=== PATIENT | female | born 1990 ===

== ENCOUNTER 2017-01-08 19:30 | Emergency (ER) | payer OTHER ==
[2017-01-08 19:30] VITALS: BMI 33.6
[2017-01-08 19:47] VITALS: BP 125/89; PULSE 84; RESP 16; TEMP 98.2; O2SAT 100
[2017-01-08] MEDS ORDERED: Sodium Chloride 0.9% 1,000 ML IV STA (20:03)
[2017-01-08 20:43] LABS: BASO % 0.5 % (0.0-2.0); HEMATOCRIT 37.6 % (34.0-47.0); MEAN CORPUSCULAR HEMOGLOBIN 29.6 pg (27.0-31.0); MEAN CORPUSCULAR HGB CONC 33.4 g/dL (33.0-37.0); MEAN PLATELET VOLUME 9.7 fl (7.2-11.7); MONO # 1.1 K/uL (0.0-0.8); MONO % 13.7 % (0.0-10.0); NEUT % 60.8 % (50.0-75.0); NRBC % 0.1 % (0.0-0.0); RED CELL DISTRIBUTION WIDTH 13.7 % (11.5-14.5); WHITE BLOOD COUNT 8.2 K/uL (4.8-10.8)
[2017-01-08 20:47] LABS: ALKALINE PHOSPHATASE 84 U/L (38-126); ALT/SGPT 12 U/L (9-52); AST/SGOT 31 U/L (14-36); BILIRUBIN,TOTAL 0.6 mg/dl (0.2-1.3); BLOOD UREA NITROGEN 18 mg/dl (7-17); CALCIUM 9.1 mg/dL (8.4-10.2); CARBON DIOXIDE 24 mmol/L (22-30); CHLORIDE 103 mmol/L (98-107); GFR AFRICAN-AMERICAN > 60; GLUCOSE,RANDOM 83 mg/dL (65-105); SODIUM 141 mmol/l (132-148); TOTAL PROTEIN 8.2 G/DL (6.3-8.2)
[2017-01-08 20:48] LABS: POTASSIUM 4.8 MMOL/L (3.6-5.0)
--- NOTE | 2017-01-08 20:50 | ED PDOC ---
Lower Extremity Pain/Injury Time Seen by Provider: 01/08/17 20:15 Chief Complaint (Nursing): Lower Extremity Problem/Injury Chief Complaint (Provider): left foot pain History Per: Patient History/Exam Limitations: no limitations Onset/Duration Of Symptoms: Hrs (this morning ) Current Symptoms Are (Timing): Still Present Additional Complaint(s): Genesis Araujo is a 26 year old female, with no previous medical history, who presents to the ED with complaints of atraumatic left foot pain and swelling which started this morning. Pt reports no numbness or tingling to the foot. Pt states when foot is palpated in area of pain, pain radiates up the foot. Pt denies any numbness, tingling, chest pain, shortness of breath of calf pain. Pt reports falling in July 2016 into a pothole where she required surgery on that foot. Pt reports undergoing surgery on August 18 2016. Pt states she contacted Dr. Amaro the surgeon who preformed her procedure who stated pt be evaluated in the ED. PMD: none provided Past Medical History Reviewed: Historical Data, Nursing Documentation, Vital Signs Vital Signs: Last Vital Signs Temp 98.2 F 01/08/17 19:45 Pulse 84 01/08/17 19:45 Resp 16 01/08/17 19:45 BP 125/89 01/08/17 19:45 Pulse Ox 100 01/08/17 19:45 - Medical History PMH: Asthma, Bronchitis, Seizures Denies: Chronic Kidney Disease - Family History Family History: States: Unknown Family Hx - Home Medications Home Medications: Ambulatory Orders Medication Instructions Recorded Carbamazepine [Carbatrol] 200 mg PO AC 02/04/15 Carbamazepine [Carbatrol] 400 mg PO HS 02/04/15 Folic Acid 1 mg PO BID 02/04/15 oxyCODONE/Acetaminophen [Percocet 1 ea PO Q6H PRN #15 tab 08/12/16 5/325 mg Tab] Cephalexin [cephalexin] 500 mg PO TID 08/21/16 Pregabalin [Lyrica] 100 mg PO TID 08/21/16 Ondansetron [Zofran] 4 mg PO Q8H PRN #10 tab 01/08/17 oxyCODONE/Acetaminophen [Percocet 1 ea PO Q6 PRN #10 tab 01/08/17 5/325 mg Tab] - Allergies Allergies/Adverse Reactions: Allergies Allergy/AdvReac Type Severity Reaction Status Date / Time doxycycline Allergy ANAPHYLAXIS Verified 02/09/16 17:35 Review of Systems ROS Statement: Except As Marked, All Systems Reviewed And Found Negative Cardiovascular: Negative for: Chest Pain Respiratory: Negative for: Shortness of Breath Musculoskeletal: Positive for: Foot Pain (left foot ) Neurological: Negative for: Numbness, Other (tingling ) Physical Exam - Reviewed Nursing Documentation Reviewed: Yes Vital Signs Reviewed: Yes - Physical Exam Appears: Positive for: Well, Non-toxic, In Acute Distress (moderate painful ) Head Exam: Positive for: ATRAUMATIC, NORMAL INSPECTION, NORMOCEPHALIC Skin: Positive for: Normal Color, Warm, Dry Cardiovascular/Chest: Positive for: Regular Rate, Rhythm Respiratory: Positive for: Normal Breath Sounds. Negative for: Decreased Breath Sounds, Accessory Muscle Use, Wheezing, Respiratory Distress Extremity: Positive for: Normal ROM (not assest ), Tenderness (dorsum of the left foot ), Capillary Refill (< 2 seconds ). Negative for: Pedal Edema, Calf Tenderness, Deformity, Swelling (no erythema ), Other (ankle tenderness. homans sign ) Neurologic/Psych: Positive for: Alert, Oriented Comments: incision noted to the medial aspect of the foot. well healing. - Laboratory Results Result Diagrams: 01/08/17 20:14 01/08/17 20:14 - ECG O2 Sat by Pulse Oximetry: 100 (RA) Pulse Ox Interpretation: Normal - Progress ED Course And Treament: xry of foot: screw noted seen by podiatry resident. Patient to f/u with Dr. Leblanc on to arrange removal of 'tight-rope.' Medical Decision Making Medical Decision Making: Initial Impression: Initial Plan: * labs * morphine * IV NS 1,000 ml at 500 ml/hr * pepcid * tylenol * zofran * x-ray left foot * reevaluation 19:56 Called to bedside by pt for vomiting. Pt states pain acutely worsened which caused her to vomit. Scribe Attestation: Documented by Liss Alves, acting as a scribe for Pamela Turner PA-C. Provider Scribe Attestation: All medical record entries made by the Scribe were at my direction and personally dictated by me. I have reviewed the chart and agree that the record accurately reflects my personal performance of the history, physical exam, medical decision making, and the department course for this patient. I have also personally directed, reviewed, and agree with the discharge instructions and disposition. Disposition - Clinical Impression Clinical Impression: Fracture dislocation of tarsometatarsal joint, Pain of foot - Patient ED Disposition Is Patient to be Admitted: No - Disposition Disposition: Routine/Home Disposition Time: 22:19 Condition: FAIR Prescriptions: oxyCODONE/Acetaminophen [Percocet 5/325 mg Tab] 1 ea PO Q6 PRN #10 tab PRN Reason: Pain, Severe (8-10) Ondansetron [Zofran] 4 mg PO Q8H PRN #10 tab PRN Reason: Nausea/Vomiting Instructions: Foot Fracture in Adults (ED)
[2017-01-08 20:54] LABS: MEAN CELL VOLUME 88.6 fl (81.0-99.0)
[2017-01-08] MEDS ORDERED: HYDROmorphone 0.5 mg/0.5 ml ISec IVP STA (21:35)
[2017-01-08] MEDS ORDERED: HYDROmorphone 0.5 mg/0.5 ml ISec ONE (21:38)
--- NOTE | 2017-01-08 22:15 | CP.PCM.CON ---
History of Present Illness - History of Present Illness History of Present Illness: 26 year old female with PMHx of seizure disorder, presenting to the ED with a chief complaint of pain and swelling to her left foot which began this morning. Patient has left foot Lisfranc ORIF done by Dr. Leblanc in July with tightrope fixation. She denies any recent trauma to the area, however states that she woke up this morning in severe pain with swelling of the foot. She denies n/v/f/c/sob at this time. Patient is ambulating with CAM walker at this time. Past Patient History - Infectious Disease Hx of Infectious Diseases: None - Past Medical History & Family History Past Medical History?: Yes - Past Social History Smoking Status: Never Smoked - CARDIAC Hx Cardiac Disorders: No - PULMONARY Hx Asthma: Yes Hx Bronchitis: Yes - NEUROLOGICAL Hx Seizures: Yes - HEENT Hx HEENT Problems: No - RENAL Hx Chronic Kidney Disease: No - ENDOCRINE/METABOLIC Hx Endocrine Disorders: No - HEMATOLOGICAL/ONCOLOGICAL Hx Blood Disorders: No - INTEGUMENTARY Hx Dermatological Problems: No - MUSCULOSKELETAL/RHEUMATOLOGICAL Hx Musculoskeletal Disorders: No Hx Back Pain: Yes - GASTROINTESTINAL Hx Gastrointestinal Disorders: No - GENITOURINARY/GYNECOLOGICAL Hx Genitourinary Disorders: No - PSYCHIATRIC Hx Psychophysiologic Disorder: No Hx Emotional Abuse: No Hx Physical Abuse: No Hx Substance Use: No - SURGICAL HISTORY Hx Surgeries: Yes Other/Comment: Hx tummy tuck, skin tag removal 2010 - ANESTHESIA Hx Anesthesia: Yes Hx Anesthesia Reactions: No Hx Malignant Hyperthermia: No Meds Allergies/Adverse Reactions: Allergies Allergy/AdvReac Type Severity Reaction Status Date / Time doxycycline Allergy ANAPHYLAXIS Verified 02/09/16 17:35 Physical Exam - Constitutional Appears: Well, Non-toxic, No Acute Distress - Neurological Exam Neurological exam: Oriented x3 - Psychiatric Exam Psychiatric exam: Normal Affect, Normal Mood - Additional Findings Additional findings: DERMATOLOGIC: Skin is intact, normal skin color, no open lesions or rashes. There is small area of discoloration surrounding the surgical site at the medial aspect of the first metatarsal base with hyperpigmentation. VASCULAR: DP/PT pulses 2/4, ANNEALING FURNACE TENDER<3 seconds, skin temperature is normal. There is localized edema at the left foot with small pocket of edema at previous surgical site NEUROLOGIC: Gross sensation intact, motor function intact ORTHOPEDIC: Pain on palpation to the medial aspect of the left first metatarsal base medially and the dorsal aspect of the midfoot, both areas correlating to the surrounding surgical sites. There is prominent hardware palpable at the medial and dorsal aspect of the foot. Results - Vital Signs Recent Vital Signs: Last Vital Signs Temp 98.2 F 01/08/17 19:45 Pulse 84 01/08/17 19:45 Resp 16 01/08/17 19:45 BP 125/89 01/08/17 19:45 Pulse Ox 100 01/08/17 21:08 - Labs Result Diagrams: 01/08/17 20:14 01/08/17 20:14 Labs: Laboratory Results - last 24 hr 01/08/17 20:14 WBC 8.2 D RBC 4.24 Hgb 12.6 D Hct 37.6 MCV 88.6 D MCH 29.6 MCHC 33.4 RDW 13.7 Plt Count 260 MPV 9.7 Neut % (Auto) 60.8 Lymph % (Auto) 25.0 [place] % (Auto) 13.7 H Eos % (Auto) 0.0 Baso % (Auto) 0.5 Neut # 5.0 Lymph # 2.0 [place] # 1.1 H Eos # 0.0 Baso # 0.0 Sodium 141 Potassium 4.8 Chloride 103 Carbon Dioxide 24 Anion Gap 19 BUN 18 H Creatinine 0.5 L Est GFR ( Amer) > 60 Est GFR (Non-Af Amer) > 60 Random Glucose 83 Calcium 9.1 Total Bilirubin 0.6 AST 31 ALT 12 Alkaline Phosphatase 84 Total Protein 8.2 Albumin 4.1 Globulin 4.1 H Albumin/Globulin Ratio 1.0 Assessment & Plan - Assessment and Plan (Free Text) Assessment: 26 year old female with painful hardware to the left foot s/p lisfranc ORIF in July 2016. Plan: Patient seen and evaluated, d/w attending Dr. Leblanc. Patients x-rays reviewed. Pt will require removal of left foot tightrope by Dr. Leblanc. Patient will see Dr. Leblanc in his office on and he will book her for surgery for removal at that time. Patient to wear CAM walker for ambulation and use her rolling walker for assistance. Patient to ice and elevate the LLE at home. ED will dispense pain medication to go home with.
--- NOTE | 2017-01-09 14:00 | RAD ---
PROCEDURE: Left Foot Radiographs. HISTORY: tender COMPARISON: 11/09/2016. FINDINGS: BONES: Stable position orthopedic hardware 1st and 2nd cuneiform bones and 2nd metatarsal. Mild osteopenia. JOINTS: No significant interval change compared to the prior examination(s). SOFT TISSUES: Unremarkable OTHER FINDINGS: None. IMPRESSION: Stable examination.
== END 2017-01-08 22:48 | disposition home or self-care (01) ==
LOC: H.ER 19:30
DX: M79.672 Pain in left foot (principal)

== ENCOUNTER 2017-02-08 15:29 | Emergency (ER) | payer OTHER ==
[2017-02-08 15:29] VITALS: BMI 34.0
[2017-02-08 15:36] VITALS: BP 133/77; PULSE 88; RESP 19; TEMP 98.8; O2SAT 99
[2017-02-08] MEDS ORDERED: Oxycodone/Acetaminophen 5/325 mg Tab PO STA (15:50)
--- NOTE | 2017-02-08 16:03 | ED PDOC ---
Lower Extremity Pain/Injury Time Seen by Provider: 02/08/17 15:45 Chief Complaint (Nursing): Lower Extremity Problem/Injury Chief Complaint (Provider): Right Foot Injury History Per: Patient History/Exam Limitations: no limitations Current Symptoms Are (Timing): Constant Additional Complaint(s): 15:45 Genesis Araujo is a 26 year old female that presents to the ED with a chief complaint of right foot pain. Patient reports that she sustained a right foot injury in July 2016, and has surgical intervention with Dr. Leblanc. She also states that that she was seen yesterday for foot pain and was given an injection for pain control, but feels that the pain has become progressively worse to the point at [facility] she is nauseous and cannot bear any weight on her foot. Of Note: Patient walks with a cane. Past Medical History Reviewed: Historical Data, Nursing Documentation, Vital Signs Vital Signs: Last Vital Signs Temp 98.8 F 02/08/17 15:34 Pulse 88 02/08/17 15:34 Resp 19 02/08/17 15:34 BP 133/77 02/08/17 15:34 Pulse Ox 99 02/08/17 15:34 - Medical History PMH: Asthma (WITH BRONCHITIS), Bronchitis, Fractures (LEFT FOOT), Seizures Denies: Chronic Kidney Disease - Family History Family History: States: Unknown Family Hx - Home Medications Home Medications: Ambulatory Orders Medication Instructions Recorded Carbamazepine [Carbatrol] 200 mg PO ACB 02/04/15 Carbamazepine [Carbatrol] 400 mg PO HS 02/04/15 Pregabalin [Lyrica] 100 mg PO TID 08/21/16 Folic Acid 1 tab PO BID 01/11/17 lamoTRIgine [Lamictal] 1 tab PO BID 01/11/17 Tramadol HCl [Ultram] 50 mg PO Q6 #15 tab 02/08/17 - Allergies Allergies/Adverse Reactions: Allergies Allergy/AdvReac Type Severity Reaction Status Date / Time doxycycline Allergy ANAPHYLAXIS Verified 01/11/17 10:44 Review of Systems Constitutional: Negative for: Fever, Chills Gastrointestinal: Positive for: Nausea, Vomiting Musculoskeletal: Positive for: Foot Pain (right foot pain) Physical Exam - Reviewed Nursing Documentation Reviewed: Yes Vital Signs Reviewed: Yes - Physical Exam Appears: Positive for: Non-toxic, In Acute Distress (pt is in moderate painful distress) Head Exam: Positive for: ATRAUMATIC, NORMOCEPHALIC Skin: Positive for: Normal Color, Warm Eye Exam: Positive for: Normal appearance, EOMI Extremity: Positive for: Tenderness (ttp of right foot), Swelling (significant swelling to dorsum of right foot). Negative for: Other (no bruising or hematoma of right foot) Neurologic/Psych: Positive for: Alert, commodity merchant II-XII, Oriented - ECG O2 Sat by Pulse Oximetry: 99 (RA) Pulse Ox Interpretation: Normal Medical Decision Making Medical Decision Makin:57 Initial Impression: Right Foot Injury Initial Plan: * CMP * CBC * ESR * Blood Culture * Urinalysis X-Ray of patient's right ankle done today, reviewed. Screws noted, but no evidence of acute fracture. Patient began vomiting in ER, was given oxygen as well as Zofran with Morphine (4 mg each IV). Will consult podiatry, and ordered basic lapse to rule out infection. 16:59 Podiatry came to evaluate patient. 17:19 Pt will be placed in a hardcast. and will be advised to f/u with podiatry in 1 week given ultram for pain control advise strongly that narcotic use can lead to addiction. made aware this, however due to severity of pain given a few for 10/ 10pain. Scribe Attestation: Documented by Julia Golden, acting as a scribe for Radha Mario PA-C. Provider Scribe Attestation: All medical record entries made by the Scribe were at my direction and personally dictated by me. I have reviewed the chart and agree that the record accurately reflects my personal performance of the history, physical exam, medical decision making, and the department course for this patient. I have also personally directed, reviewed, and agree with the discharge instructions and disposition. Disposition - Clinical Impression Clinical Impression: Lisfranc fracture - Patient ED Disposition Is Patient to be Admitted: No Counseled Patient/Family Regarding: Studies Performed, Diagnosis, Need For Followup, Rx Given - Disposition Referrals: [facility] [Outside] Disposition: Routine/Home Disposition Time: 18:01 Condition: STABLE Prescriptions: Tramadol HCl [Ultram] 50 mg PO Q6 #15 tab Instructions: Foot Fracture in Adults (ED)
[2017-02-08 17:29] LABS: RBC URINE 4 /hpf (0-3); URINE BACTERIA OCC (<OCC); URINE BILIRUBIN NEGATIVE (NEGATIVE); URINE BLOOD SMALL (NEGATIVE); URINE COLOR YELLOW (YELLOW); URINE GLUCOSE (UA) NEG (Normal); URINE KETONE NEGATIVE (NEGATIVE); URINE LEUKOCYTE ESTERASE NEG Leu/uL (Negative); URINE PROTEIN 30 mg/dL (NEGATIVE); URINE UROBILINOGEN 0.2-1.0 mg/dL (0.2-1.0); WBC URINE 1 /hpf (0-5)
--- NOTE | 2017-02-08 19:05 | CP.PCM.CON ---
History of Present Illness - History of Present Illness History of Present Illness: 26 year old female seen at bedside in [facility] ED concerning left foot pain. Pt was sent to [facility] for radiographs by red leader Dr. Leblanc, who is treating her for this issue, after being seen in his office. However intensity of pain to her foot caused her to head to the emergency room after. Pt has a history of a traumatic lisfranc injury and recently had a surgery in December to remove surgical hardware from the site. Pt reports pain is "8/10", though is able to partially ambulate with use of a malcolm though she states she has not slept for the past 2 night due to the intensity of the pain. Pt has had pain not controlled with Tylenol and reports most relief came from use of Percocet. Pt denies and recent acute trauma to the foot that could have exacerbated injury. Pt denies recent f/c/cp/sob/n/v. Past Patient History - Infectious Disease Hx of Infectious Diseases: None - Past Medical History & Family History Past Medical History?: Yes - Past Social History Smoking Status: Never Smoked - CARDIAC Hx Cardiac Disorders: No - PULMONARY Hx Asthma: Yes (WITH BRONCHITIS) Hx Bronchitis: Yes - NEUROLOGICAL Hx Seizures: Yes - HEENT Hx HEENT Problems: No - RENAL Hx Chronic Kidney Disease: No - ENDOCRINE/METABOLIC Hx Endocrine Disorders: No - HEMATOLOGICAL/ONCOLOGICAL Hx Blood Disorders: No - INTEGUMENTARY Hx Dermatological Problems: No - MUSCULOSKELETAL/RHEUMATOLOGICAL Hx Fractures: Yes (LEFT FOOT) - GASTROINTESTINAL Hx Gastrointestinal Disorders: No - GENITOURINARY/GYNECOLOGICAL Hx Genitourinary Disorders: No - PSYCHIATRIC Hx Psychophysiologic Disorder: No Hx Substance Use: No - SURGICAL HISTORY Hx Surgeries: Yes Hx Open Reduction Internal Fixation: Yes (LEFT FOOT) Other/Comment: Hx tummy tuck, skin tag removal 2010 - ANESTHESIA Hx Anesthesia: Yes Hx Anesthesia Reactions: No Hx Malignant Hyperthermia: No Meds Home Medications: Home Medication List Medication Instructions Recorded Confirmed Type Tramadol HCl [Ultram] 50 mg PO Q6 #15 tab 02/08/17 Rx Allergies/Adverse Reactions: Allergies Allergy/AdvReac Type Severity Reaction Status Date / Time doxycycline Allergy ANAPHYLAXIS Verified 01/11/17 10:44 Physical Exam - Constitutional Appears: Well, Non-toxic, No Acute Distress - Extremities Exam Additional comments: Left foot focused. DERMATOLOGIC: Skin is intact, normal skin color, no open lesions or rashes. Well approximated medial surgical cicatrix absent overlying stratum corneum layer of skin to a 4 cm martin-incision diameter. There is small area of discoloration surrounding the surgical site at the medial aspect of the first metatarsal base with hyperpigmentation. VASCULAR: DP/PT pulses 2/4, AUDIO VISUAL PROJECT MANAGER<3 seconds, skin temperature is normal. There is localized edema at the left foot along the previous surgical site and extending laterally across dorsum of the foot. NEUROLOGIC: Gross sensation intact, motor function intact ORTHOPEDIC: Pain on palpation to the medial aspect of the left first metatarsal base medially and the dorsal aspect of the midfoot, both areas correlating to the surrounding surgical sites. Mild laxity along medial tarsal bones structures. - Neurological Exam Neurological exam: Alert, Oriented x3 - Psychiatric Exam Psychiatric exam: Normal Affect, Normal Mood Results - Vital Signs Recent Vital Signs: Last Vital Signs Temp 98.8 F 02/08/17 15:34 Pulse 88 02/08/17 15:34 Resp 19 02/08/17 15:34 BP 133/77 02/08/17 15:34 Pulse Ox 99 02/08/17 18:03 - Labs Labs: Laboratory Results - last 24 hr 02/08/17 16:10 Urine Color Yellow Urine Clarity Slighty-cloudy Urine pH 6.0 Ur Specific [place] 1.030 Urine Protein 30 Urine Glucose (UA) Neg Urine Ketones Negative Urine Blood Small Urine Nitrate Negative Urine Bilirubin Negative Urine Urobilinogen 0.2-1.0 Ur Leukocyte Esterase Neg Urine RBC (Auto) 4 H Urine Microscopic WBC 1 Ur Squamous Epith Cells 7 H Urine Bacteria Occ H Assessment & Plan - Assessment and Plan (Free Text) Assessment: 26 year old with recurrent Lisfranc injury, secondary to non-acute prior trauma. Plan: Patient seen and evaluated. Charts, labs, and vitals reviewed. Discussed finding with attending Dr. Leblanc who endorses the following plan. -X-rays reviewed-noted Lisfranc diastasis absent significant displacement or translation. - Discussed finding with patient explained there is need for further surgical intervention do to radiological and clinical finding. Surgical planning to occur in Dr. Mejía's office, though benefits risk and complications were discussed at this time. -All patient's questions and concerns were addressed at this time. -Applied below knee bi-valved fiberglass cast to patient's left foot. Pt to remain non-weightbearing with use of crutches. Patient to ice and elevate the LLE at home. ED will dispense pain medication to go home with. Pt to follow-up with attending Dr. Leblanc in office. - Date & Time Date: 02/08/17 Time: 18:26
== END 2017-02-08 18:42 | disposition home or self-care (01) ==
LOC: H.ER 15:29
DX: M79.671 Pain in right foot (principal); R11.2 Nausea with vomiting, unspecified; Z47.89 Encounter for other orthopedic aftercare

== ENCOUNTER 2017-04-28 18:39 | Emergency (ER) | payer OTHER ==
[2017-04-28 18:39] VITALS: BMI 34.0
[2017-04-28 18:43] VITALS: BP 118/77; PULSE 91; RESP 16; TEMP 98.2; O2SAT 99
[2017-04-28] MEDS ORDERED: Oxycodone/Acetaminophen 5/325 mg Tab PO STA ×2 (18:51→20:26)
[2017-04-28] MEDS ORDERED: Oxycodone/Acetaminophen 5/325 mg Tab ONE (19:09)
--- NOTE | 2017-04-28 19:50 | CP.PCM.CON ---
History of Present Illness - History of Present Illness History of Present Illness: 27 y/o female with PMH of seizures presents to the ED with pain and swelling in the left foot after a fall approximately 1 hour ago. Patient states she slipped while getting into the shower and her foot collapsed downwards with her toes pointing down. Patient states the pain began immediately and resembled that of when she injured her foot in July. Patient states she sees Dr. Leblanc regularly and has a history of foot surgery with him. Patient last saw Dr. Leblanc in his office approximately 9 days ago for a corticosteroid injection into the L foot for mild to moderate residual post-surgical pain. Patient states that her toes feel numb and have pins and needles. Patient denies any F/C /N/V/SOB. PSH: left foot correction of tarsometatarsal joint injury with dislocation (2015) All: Doxycycline Review of Systems - Review of Systems All systems: reviewed and no additional remarkable complaints except (per HPI) Past Patient History - Infectious Disease Hx of Infectious Diseases: None - Past Medical History & Family History Past Medical History?: Yes - Past Social History Smoking Status: Never Smoked - CARDIAC Hx Cardiac Disorders: No - PULMONARY Hx Asthma: Yes (WITH BRONCHITIS) Hx Bronchitis: Yes - NEUROLOGICAL Hx Seizures: Yes - HEENT Hx HEENT Problems: No - RENAL Hx Chronic Kidney Disease: No - ENDOCRINE/METABOLIC Hx Endocrine Disorders: No - HEMATOLOGICAL/ONCOLOGICAL Hx Blood Disorders: No - INTEGUMENTARY Hx Dermatological Problems: No - MUSCULOSKELETAL/RHEUMATOLOGICAL Hx Fractures: Yes (LEFT FOOT) - GASTROINTESTINAL Hx Gastrointestinal Disorders: No - GENITOURINARY/GYNECOLOGICAL Hx Genitourinary Disorders: No - PSYCHIATRIC Hx Psychophysiologic Disorder: No Hx Substance Use: No - SURGICAL HISTORY Hx Surgeries: Yes Hx Open Reduction Internal Fixation: Yes (LEFT FOOT) Other/Comment: Hx tummy tuck, skin tag removal 2010 - ANESTHESIA Hx Anesthesia: Yes Hx Anesthesia Reactions: No Hx Malignant Hyperthermia: No Meds Allergies/Adverse Reactions: Allergies Allergy/AdvReac Type Severity Reaction Status Date / Time doxycycline Allergy ANAPHYLAXIS Verified 01/11/17 10:44 Physical Exam - Constitutional Appears: Well, Non-toxic, No Acute Distress - Extremities Exam Additional comments: Left lower extremity focused examination: Vascular: DP/PT pulses palpable 2/4. Temperature gradient warm to warm. CFT < 3 sec to all digits. Mild pedal edema noted to dorsum of foot. Derm: No erythema, no ecchymosis, no open lesions, no breaks in skin or soft tissue, no clinical signs of infection Neuro: Protective sensation grossly intact Ortho: Tenderness upon light palpation of dorsal foot. Hx of Lisfranc fracture with ligamentous injury. - Neurological Exam Neurological exam: Alert, Oriented x3 - Psychiatric Exam Psychiatric exam: Normal Affect, Normal Mood Results - Vital Signs Recent Vital Signs: Last Vital Signs Temp 98.2 F 04/28/17 18:41 Pulse 91 H 04/28/17 18:41 Resp 16 04/28/17 18:41 BP 118/77 04/28/17 18:41 Pulse Ox 99 04/28/17 18:41 Assessment & Plan - Assessment and Plan (Free Text) Assessment: 27 y/o female with PMH of left foot tarsometatarsal joint dislocation injury with pain and swelling in left foot secondary to fall Plan: Pt seen and evaluated in ED Discussed plan in detail with attending Dr. Leblanc Pt given Percocet by ED for pain management Reviewed X-rays of L foot and ankle- moderate diastasis noted at Lisfranc joint. No acute fracture or dislocation, no significant radiographic changes noted since previous films on 02/08/17 Patient instructed to be non-weight bearing in CAM walker Pt to follow up with Dr. Leblanc as outpatient on ED to decide if patient discharged with pain medication Thank you for this consult
--- NOTE | 2017-04-28 19:59 | ED PDOC ---
Lower Extremity Pain/Injury Time Seen by Provider: 04/28/17 18:44 Chief Complaint (Nursing): Lower Extremity Problem/Injury Chief Complaint (Provider): Lower Extremity Injury History Per: Patient History/Exam Limitations: no limitations Onset/Duration Of Symptoms: Mins (just prior to arrival) Current Symptoms Are (Timing): Still Present Severity: Moderate Additional Complaint(s): 27 year old female with a pertinent medical history of left foot fractures presents to the ED with complaints of left ankle and left foot pain that started just prior to arrival when she slipped and fell in her bathtub. She reports that in August 2016, she had a fracture of her left foot, and needed surgery (preformed by ) for it. 2x months later, she had to get the screws from that surgery removed. She denies having any numbness or tingling, or any other injuries (including a head injury) from the fall. PMD: Gilse Leblanc MD Past Medical History Reviewed: Historical Data, Nursing Documentation, Vital Signs Vital Signs: Last Vital Signs Temp 98.2 F 04/28/17 18:41 Pulse 91 H 04/28/17 18:41 Resp 16 04/28/17 18:41 BP 118/77 04/28/17 18:41 Pulse Ox 99 04/28/17 18:41 - Medical History PMH: Asthma (WITH BRONCHITIS), Bronchitis, Fractures (LEFT FOOT), Seizures Denies: Chronic Kidney Disease - Surgical History Other surgeries: left foot surgery august 2016, october 2016 - Family History Family History: States: Unknown Family Hx - Social History Current smoker - smoking cessation education provided: No Alcohol: None Drugs: Denies - Home Medications Home Medications: Ambulatory Orders Medication Instructions Recorded Carbamazepine [Carbatrol] 200 mg PO ACB 02/04/15 Carbamazepine [Carbatrol] 400 mg PO HS 02/04/15 Pregabalin [Lyrica] 100 mg PO TID 08/21/16 Folic Acid 1 tab PO BID 01/11/17 lamoTRIgine [Lamictal] 1 tab PO BID 01/11/17 Tramadol HCl [Ultram] 50 mg PO Q6 #15 tab 02/08/17 Naproxen [Naprosyn] 500 mg PO BID PRN #30 tab 04/28/17 - Allergies Allergies/Adverse Reactions: Allergies Allergy/AdvReac Type Severity Reaction Status Date / Time doxycycline Allergy ANAPHYLAXIS Verified 01/11/17 10:44 Review of Systems Musculoskeletal: Positive for: Foot Pain (left foot, left ankle pain) Neurological: Negative for: Numbness (no tingling), Headache (no head injury) Physical Exam - Reviewed Nursing Documentation Reviewed: Yes Vital Signs Reviewed: Yes - Physical Exam Appears: Positive for: Well, Non-toxic, No Acute Distress Head Exam: Positive for: ATRAUMATIC, NORMOCEPHALIC Pulses-Dorsalis Pedis (L): 2+ Pulses-Dorsalis Pedis (R): 2+ Extremity: Positive for: Tenderness (mild tenderness to the lateral malleolus of left ankle. no deformity, (+) swelling. dorsum of left foot: mild swelling, no deformity.). Negative for: Calf Tenderness (bilaterally), Deformity Neurologic/Psych: Positive for: Alert, Oriented (x3) - ECG O2 Sat by Pulse Oximetry: 99 (RA) Pulse Ox Interpretation: Normal - Radiology X-Ray: Interpreted by Me (L ankle and foot x-rays) X-Ray Interpretation: Other ([address]; no fx; compared to last foot x- ray on 01/14 which show no acute changes today) - Progress ED Course And Treament: Pt. evaluated by Miriam, podiatry resident, in ED. Miriam viewed x-rays with Dr. Leblanc (who knows pt. well) and compared previous x- rays which show no acute changes today. Dr. Leblanc will patient on . Pt. requesting more pain meds. Toradol 15mg IM, percocet 1 tab PO given. [place] [facility] [place] that pt. was last prescribed Endocet #15 on 04/18/[address] Rai. Foot was wrapped by Miriam and given f/u instructions. Medical Decision Making Medical Decision Makin:44 Initial impression: 27 year old female with left ankle and left foot pain status post fall. Initial plan: * percocet 5/325mg tab: 1 tab PO * XRay ankle left 3 views * XRay foot left 3 views * reevaluation Scribe Attestation: Documented by Melissa Zee, acting as a scribe for Kristian Menjivar Provider Scribe Attestation: All medical record entries made by the Scribe were at my direction and personally dictated by me. I have reviewed the chart and agree that the record accurately reflects my personal performance of the history, physical exam, medical decision making, and the department course for this patient. I have also personally directed, reviewed, and agree with the discharge instructions and disposition. Disposition - Clinical Impression Clinical Impression: Foot sprain - Patient ED Disposition Is Patient to be Admitted: No - Disposition Referrals: Sean Leblanc DPM [Doctor Podiatric [facility]] - Disposition: Routine/Home Disposition Time: 20:43 Condition: STABLE Additional Instructions: FOLLOW UP WITH DR. LEBLANC ON SATURDAY SCHEDULED WITHOUT FAIL. Prescriptions: Naproxen [Naprosyn] 500 mg PO BID PRN #30 tab PRN Reason: Pain Instructions: Crutch Instructions (ED), Foot Sprain (ED), RICE Therapy (ED) Forms: [employer] (Bulgarian) Print Language: AZERBAIJANI
--- NOTE | 2017-04-29 14:49 | RAD ---
PROCEDURE: Left Ankle Radiographs. HISTORY: trauma COMPARISON: Prior left ankle radiographs 05/01/2014. FINDINGS: BONES: Normal. No fracture. JOINTS: Normal. No osteoarthritis. Ankle mortise maintained. Talar dome intact SOFT TISSUES: Normal. OTHER FINDINGS: Incidental note is made of interval podiatric screws at the tarsus as well as involving the apparent proximal segment of the 2nd metatarsal bone and possibly also the 3rd metatarsal bone. IMPRESSION: No acute fracture dislocation. Or significant interval change in the ankle. Incidental postop change are identified at the midfoot however.
--- NOTE | 2017-04-29 14:51 | RAD ---
PROCEDURE: Left Foot Radiographs. HISTORY: trauma COMPARISON: Left foot radiographs 02/08/2017. FINDINGS: BONES: No acute fracture or dislocation is identified. No suspicious lytic or blastic change is evident. JOINTS: Orthopedic or podiatric screws identified at the base of the 2nd metatarsal bone as well as in the region of the middle and lateral cuneiform bones once again. SOFT TISSUES: Normal. OTHER FINDINGS: None. IMPRESSION: No acute fracture dislocation. Postop changes in the midfoot as described above.
== END 2017-04-28 20:55 | disposition home or self-care (01) ==
LOC: H.ER 18:39
DX: S93.602A Unspecified sprain of left foot, initial encounter (principal); X50.9XXA Other and unspecified overexertion or strenuous movements or postures, initial encounter; Y92.002 Bathroom of unspecified non-institutional (private) residence as the place of occurrence of the external cause

== ENCOUNTER 2017-06-25 12:13 | Day surgery (SDC) | payer OTHER ==
[2017-06-20 11:23] VITALS: BMI 37.8
[2017-06-25] MEDS ORDERED: ceFAZolin 2 GM in Sodium Chloride 0.9% 100 ML IVPB ONE (14:23)
[2017-06-25] MEDS ORDERED: Bupivacaine 0.5% Inj(30mL) IJ ONE (14:23)
[2017-06-25] MEDS ORDERED: Lidocaine 1% Inj (20ml) IJ ONE ×2 (14:23→15:52)
--- NOTE | 2017-06-25 14:28 | CP.SDSHP ---
Same Day Surgery H & P - History Proposed Procedure: Painful hardware removal from 2nd and 3rd metatarsal of the left foot Pre-Op Diagnosis: painful hardware in left foot s/p surgical procedure - Allergies Allergies: Allergies doxycycline Allergy (Verified 01/11/17 10:44) ANAPHYLAXIS - Physical Exam Vital Signs: Vital Signs 06/25/17 12:30 Temperature 97.6 F Pulse Rate 81 Respiratory 18 Rate Blood Pressure 123/79 O2 Sat by Pulse 98 Oximetry Mental Status: Alert & Oriented x3 Neuro: WNL Heart: WNL Lungs: WNL GI: WNL - {Optional Preform as Required} Ortho: Other - Impression Impression: Pt was seen and examined in SDS. Pt NPO status was confirmed. All Pre-op testing and clearance was in the chart. Pt has exhausted all conservative treatment at this time and is opting for surgical intervention. Pt was explained procedure and post-operative course. All pt's questions were answered to satisfaction. No guarantees were made. Pt understands all risks, benefits and complications of procedure. Pt will follow-up with Dr. Leblanc Short Stay Discharge - Short Stay Discharge Admitting Diagnosis/Reason for Visit: Z47.2 Disposition: HOME/ ROUTINE Referrals: Jay Dempsey MD [Primary Care Provider] - Additional Instructions (Diet, Activity): Patient in good/stable condition for discharge home. Pt to resume medications per medical reconciliation. Resume regular diet. Please keep dressing clean, dry, & intact to surgical site, use plastic bag over bandage for showering, wear post op shoe at all times when ambulating, call clinic if you see signs of infection (redness, swelling, malodor), please make an appointment to see Dr. Leblanc in office/clinic within 1 week for post-op check. Progress Note/Discharge Note with Instructions: - Patient evaluated bedside in recovery s/p surgical procedure. - After surgical procedure patient in NAD - (+) Void, (+) Appetite - Capillary refill time <3s and NVSI intact. - Patient denies complaints at this time - Post operative instructions and plan of care explained to patient at length. - Pt. acknowledges understanding. - Patient stable for DC per podiatric surgery
[2017-06-25] MEDS ORDERED: Sodium Chloride 0.9% 1,000 ML IV SCH (14:30)
--- NOTE | 2017-06-25 14:31 | CP.PCM.PN ---
Subjective - Date & Time of Evaluation Date of Evaluation: 06/25/17 Time of Evaluation: 14:28 - Subjective Subjective: 27 y/o female seen at [facility] in [facility] for removal of painful hardware from left foot 2nd and 3rd metatarsal. Patient states that she has been having pain in her left foot for a while which radiates to her ankle. Patient states that she would like to get her hardware removed from the left foot. Patient states that she has been N.P.O since 9 pm last night. Patient denies of any adverse reaction to anesthesia. Patient denies of any recent F/N/V/C/SOB/CP today. Patient denies of any other pedal complains at of now. PMHx: Asthma, Bronchitis, Fractures (LEFT FOOT), Seizures PSHx: Left foot surgery Allergies: Doxycycline Objective - Vital Signs/Intake and Output Vital Signs (last 24 hours): Temp Pulse Resp BP Pulse Ox 97.6 F 81 18 123/79 98 06/25/17 12:30 06/25/17 12:30 06/25/17 12:30 06/25/17 12:30 06/25/17 12:30 - Medications Medications: Current Medications Bupivacaine HCl (Marcaine 0.5%) 50 ml IJ ONCE ONE Stop: 06/25/17 14:24 Cefazolin Sodium 2 gm/ Sodium (Chloride) 100 mls @ 100 mls/hr IVPB ONCE ONE Stop: 06/25/17 15:22 Sodium Chloride (Sodium Chloride 0.9%) 1,000 mls @ 120 mls/hr IV .Q8H20M DEE Stop: 06/26/17 14:24 Lidocaine HCl (Lidocaine 1% (20ml)) 20 ml IJ ONCE ONE Stop: 06/25/17 14:24 - Constitutional Appears: Well, Non-toxic, No Acute Distress - Extremities Exam Additional comments: Left lower extremity focused examination: Vascular: DP/PT pulses palpable 2/4. Temperature gradient warm to cool from proximal to distal. Cap refill time: < 3 sec to all digits. no pitting or non- pitting edema noted Derm: No erythema, no ecchymosis, no open lesions, no breaks in skin or soft tissue, previous surgical scar noted on the medial aspect of the midfoot, no clinical signs of infection Neuro: Protective sensation grossly intact Ortho: Tenderness upon light palpation of dorsal foot. pain present on dorsum of the foot during active DF, PF, Inversion and eversion, Hx of Lisfranc fracture with ligamentous injury. - Neurological Exam Neurological Exam: Alert, Awake, Oriented x3 - Psychiatric Exam Psychiatric exam: Normal Affect, Normal Mood Assessment and Plan - Assessment and Plan (Free Text) Assessment: 27 y/o female seen at bedside in [facility] for removal of painful hardware from left foot Plan: Pt was seen and examined in [facility] Pt NPO status was confirmed All Pre-op testing and clearance was in the chart Pt has exhausted all conservative treatment at this time and is opting for surgical intervention Pt was explained procedure and post-operative course All pt's questions were answered to satisfaction No guarantees were made Pt understands all risks, benefits and complications of procedure Pt will follow-up with Dr. Leblanc
[2017-06-25] MEDS ORDERED: Lidocaine 1% Inj (20ml) ONE (14:38)
[2017-06-25] MEDS ORDERED: Bupivacaine 0.5% Inj(30mL) ONE (14:38)
[2017-06-25] MEDS ORDERED: Lactated Ringer's 1,000 ML IV ONE (15:36)
[2017-06-25] MEDS ORDERED: Propofol 10 mg/ml Inj (20 ML) ONE (15:39)
[2017-06-25] MEDS ORDERED: Midazolam 2 MG/2 ML VIAL ONE (15:39)
[2017-06-25] MEDS ORDERED: Bupivacaine 0.5% 50 ML IJ ONE ×2 (15:52→17:09)
[2017-06-25] MEDS ORDERED: Dexamethasone 4 mg/1 ml ONE (17:07)
[2017-06-25] MEDS ORDERED: HYDROmorphone 0.5 mg/0.5 ml ISec IVP PRN (17:31)
--- NOTE | 2017-06-25 17:39 | PCM.SURG1 ---
Surgeon's Initial Post Op Note - Surgeon's Notes Surgeon: Dr. Sean Leblanc DPM Marker Machine Attendant: Dr. Thompson (PGY-1), Dr. Almaraz (PGY-1) Type of Anesthesia: General LMA Anesthesia Administered By: Dr. Mayen Pre-Operative Diagnosis: Painful hardware of left foot Operative Findings: See dictation. M: 3-0 vicryl, 4-vicryl, 3-0 nylon. I: 10 cc of 0.5% marcain plain, 1 cc of dexamethasone Post-Operative Diagnosis: same Operation Performed: exostectomy of 2nd metatarsal base, intermediate cuneiform , and lateral cuneiform exostosis Specimen/Specimens Removed: none Estimated Blood Loss: EBL {In ML}: 5 Blood Products Given: N/A Drains Used: No Drains Post-Op Condition: Good Date of Surgery/Procedure: 06/25/17 Time of Surgery/Procedure: 17:41
[2017-06-25] MEDS ORDERED: Oxycodone/Acetaminophen 5/325 mg Tab PO PRN ×2 (17:43)
[2017-06-25] MEDS ORDERED: HYDROmorphone 0.5 mg/0.5 ml ISec ONE (17:43)
[2017-06-25] MEDS ORDERED: Lactated Ringer's 1,000 ML IV SCH (17:45)
[2017-06-25 18:12] VITALS: TEMP 97.8
[2017-06-25] MEDS ORDERED: Lactated Ringer's 500 ML IV ONE (18:25)
[2017-06-25 18:40] VITALS: RESP 20
--- NOTE | 2017-06-25 19:10 | RAD ---
PROCEDURE: Left Foot Radiographs. HISTORY: Postop COMPARISON: 04/28/2017 FINDINGS: BONES: Stable position of orthopedic hardware. No acute osseous abnormalities. JOINTS: Normal. SOFT TISSUES: Soft tissue swelling over both plantar and ventral aspects of the foot. Air identified within the soft tissues likely postoperative in nature given history provided above. OTHER FINDINGS: None. IMPRESSION: Soft tissue swelling without acute articular or osseous abnormality. This represents a new finding compared to the prior study. Stable position of orthopedic hardware.
[2017-06-25 19:25] VITALS: BP 127/74; PULSE 91; O2SAT 100
--- NOTE | 2017-07-01 08:25 | OP ---
PROCEDURE DATE: 06/25/17 PREOPERATIVE DIAGNOSIS: Painful hardware, left foot. POSTOPERATIVE DIAGNOSIS: Painful exostosis of left foot. NAME OF PROCEDURE: Left exostectomy of second metatarsal base, intermediate cuneiform and lateral cuneiform. SURGEON: Sean Leblanc DPM ASSISTANTS: Tommie Thompson DPM, Dr. Almaraz. TYPE OF ANESTHESIA: General LMA. ANESTHESIA ADMINISTERED BY: Dr. Mayen. INDICATIONS: The patient is a 27-year-old female with above diagnosis. The patient has exhausted all conservative treatments at this time and now requires surgical intervention. The patient signed the consent after careful explanation of risks, benefits, complications and alternatives for surgical procedure. No guarantees were given nor implied. N.p.o. status was confirmed prior to taking the patient to the OR. PREPARATION: The patient was brought into the operating room and placed on the operating room table in a supine position. Time-out was performed for identification of the correct patient and procedure. After anesthesia, the patient received 20 mL of 0.5% Marcaine and 1% lidocaine plain in an ankle block fashion. Once local anesthesia was achieved, the left ankle and foot was then placed and draped in a normal sterile manner. A mini C-arm was then draped in a normal sterile manner as well. The patient's left foot was then exsanguinated with elevation and the pneumatic ankle tourniquet was inflated to 250 mmHg and the procedure began. DESCRIPTION OF PROCEDURE: Fluoroscopy imaging was utilized to ensure the location of the hardware. The hardware was visualized at the level of the second metatarsal base and intermediate cuneiform. Using a Piasa, the location of the hardware was marked using a marking pen. Attention was then directed to the dorsal aspect of the intermediate cuneiform. With the use of a #15-blade, an about 5-cm in length incision was created along the lateral aspect of the intermediate cuneiform joint to the level of the second metatarsal base. The incision was then carried down through the subcutaneous tissue, being careful to retract and ligate all neurovascular structures as deemed necessary. The periosteal structures were then carefully dissected free of their osseous attachment and reflected medial and laterally thus exposing the intermediate cuneiform, lateral cuneiform and second metatarsal base down to the operative site. At this time, no hardware was noted protruding on the dorsum of the mid foot. Fluoroscopy imaging was used again to locate the hardware. Still no prominence of the hardware can be visualized. At this time, noted to the intermediate cuneiform, lateral cuneiform and second metatarsal base were multiple large exostoses, consistent with the site of the patient's pain. Next, utilizing a rongeur, the exostoses were removed from the intermediate cuneiform, lateral cuneiform, and second metatarsal base and passed off the operating field. Next, utilizing a mallet, additional bone exostosis was further removed from the intermediate cuneiform, lateral cuneiform and second metatarsal base. A Power Rasp was then used to smooth down all bony prominences. Then, the wound was irrigated with copious amounts of normal saline sterile solution. Bone wax was applied to the intermediate and lateral cuneiform and second metatarsal base. Then, with the use of a 3-0 Vicryl suture material, the periosteum and the subcutaneous was reapproximated. Then, with the use of 4-0 Vicryl suture material, the subcuticular edges were reapproximated. Then, using 3-0 nylon, skin edges were reapproximated and coapted in a simple interrupted stitch pattern. Then, 10 mL of 0.5% Marcaine and 1 mL of dexamethasone 4 mg were injected surrounding the surgical site. The wounds were then dressed with Xeroform, gauze, kerlix and coban. POSTOPERATIVE CONDITION: The patient tolerated the anesthesia and procedure well and was escorted to the recovery room with vital signs stable and neurovascular status intact to the left foot. The patient will follow up with Dr. Leblanc in 1 week. Tommie Thompson DPM Sean Leblanc DPM [facility]
== END 2017-06-25 19:35 | disposition home or self-care (01) ==
LOC: H.OPSURG 12:13
PROVIDERS: ATTEND Podiatrist
DX: M89.9 Disorder of bone, unspecified (principal); Z47.2 Encounter for removal of internal fixation device; E66.9 Obesity, unspecified; G40.909 Epilepsy, unspecified, not intractable, without status epilepticus
CPT/HCPCS: 28043; 73620; J0690; J1100; J1170; J2250; J2405; J2704; J2765; J3010; J7030; J7120

== ENCOUNTER 2017-12-11 17:59 | Observation (INO) | payer OTHER ==
[2017-12-11 17:59] VITALS: BMI 37.8
--- NOTE | 2017-12-11 18:27 | ED PDOC ---
HPI: SOB/CHF/COPD Time Seen by Provider: 12/11/17 18:15 Chief Complaint (Nursing): Shortness Of Breath Chief Complaint (Provider): Shortness of breath History Per: Patient History/Exam Limitations: no limitations Onset/Duration Of Symptoms: Days (x1) Current Symptoms Are (Timing): Still Present Associated Symptoms: Chest Pain, Dizziness, Other (back pain and generalized weakness.). denies: Fever, Chills, Productive Cough Recently: Treated By A Physician Additional Complaint(s): Genesis Araujo is a 27 year old female, with a past medical history of asthma and seizures, who presents to the emergency department complaining of shortness of breath, back and chest pain onset since yesterday. Patient also reports dizziness and generalized weakness. Patient was seen by PMD on Saturday was given singulair but with no relief of symptoms. She denies any fever, chills or other medical complaints. PMD: Shaik Martin Past Medical History Reviewed: Historical Data, Nursing Documentation, Vital Signs Vital Signs: Last Vital Signs Temp 98.0 F 12/11/17 18:11 Pulse 95 H 12/11/17 18:11 Resp 16 12/11/17 18:11 BP 106/65 12/11/17 18:11 Pulse Ox 98 12/11/17 18:11 - Medical History PMH: Asthma (WITH BRONCHITIS), Bronchitis, Fractures (LEFT FOOT), Seizures Denies: Chronic Kidney Disease - Surgical History Surgical History: No Surg Hx - Family History Family History: States: Unknown Family Hx - Social History Current smoker - smoking cessation education provided: No - Home Medications Home Medications: Ambulatory Orders Medication Instructions Recorded Carbamazepine [Carbatrol] 200 mg PO ACB 02/04/15 Carbamazepine [Carbatrol] 400 mg PO HS 02/04/15 Pregabalin [Lyrica] 100 mg PO TID 08/21/16 Folic Acid 1 tab PO BID 01/11/17 lamoTRIgine [Lamictal] 1 tab PO BID 01/11/17 Acetaminophen/Oxycodone Hydr 10 - 325 mg PO Q4 PRN 06/25/17 [Percocet 10/325 mg Tab] Cephalexin [Keflex] 500 mg PO TID 06/25/17 - Allergies Allergies/Adverse Reactions: Allergies Allergy/AdvReac Type Severity Reaction Status Date / Time doxycycline Allergy ANAPHYLAXIS Verified 12/11/17 18:11 Review of Systems ROS Statement: Except As Marked, All Systems Reviewed And Found Negative Constitutional: Positive for: Weakness (generalized). Negative for: Fever, Chills Respiratory: Positive for: Cough, Shortness of Breath Musculoskeletal: Positive for: Back Pain Neurological: Positive for: Dizziness Physical Exam - Reviewed Nursing Documentation Reviewed: Yes Vital Signs Reviewed: Yes - Physical Exam Appears: Positive for: Non-toxic, No Acute Distress Head Exam: Positive for: ATRAUMATIC, NORMAL INSPECTION, NORMOCEPHALIC Skin: Positive for: Normal Color, Warm, Dry Eye Exam: Positive for: Normal appearance, EOMI, PERRL Neck: Positive for: Painless ROM, Supple Cardiovascular/Chest: Positive for: Regular Rate, Rhythm. Negative for: Murmur Respiratory: Positive for: Normal Breath Sounds (clear auscultation b/l). Negative for: Respiratory Distress Gastrointestinal/Abdominal: Positive for: Normal Exam, Soft. Negative for: Tenderness Back: Positive for: Normal Inspection. Negative for: L CVA Tenderness, R CVA Tenderness, Vertebral Tenderness Extremity: Positive for: Normal ROM. Negative for: Tenderness, Deformity, Swelling Neurologic/Psych: Positive for: Alert, Oriented - ECG O2 Sat by Pulse Oximetry: 98 (RA) Pulse Ox Interpretation: Normal Medical Decision Making Medical Decision Making: Initial Impression: Asthma exacerbation, chest pain and back pain. Initial Plan: --EKG --CMP --Troponin I --Urine --CBC w/ differential --D Dimer --PTT --PT --Chest two views (PA/LAT) [RAD] --Duoneb 3 ml INH --SOLU-medrol 125mg IVP --Morphine 2mg IV --Sodium Chloride 1,000 ml IV 1,000 mls/hr --Peak flow pre/post Tx --Reevaluation Scribe Attestation: Documented by Fitz Hernandez, acting as a scribe for Liss Jean-Baptiste MD Provider Scribe Attestation: All medical record entries made by the Scribe were at my direction and personally dictated by me. I have reviewed the chart and agree that the record accurately reflects my personal performance of the history, physical exam, medical decision making, and the department course for this patient. I have also personally directed, reviewed, and agree with the discharge instructions and disposition. Disposition - Disposition
[2017-12-11] MEDS ORDERED: Sodium Chloride 0.9% 1,000 ML IV STA (18:30)
[2017-12-11] MEDS ORDERED: Albuterol-Ipratrop 3 mg / 0.5 (3 ml) UD INH STA ×4 (18:30→21:55)
[2017-12-11] MEDS ORDERED: Albuterol-Ipratrop 3 mg / 0.5 (3 ml) UD ONE ×2 (18:35→23:14)
--- NOTE | 2017-12-11 19:06 | ED PDOC ---
- Laboratory Results Result Diagrams: 12/11/17 18:48 12/11/17 18:48 - ECG O2 Sat by Pulse Oximetry: 98 (RA) Medical Decision Making Medical Decision Makin:00 --Patient was endorsed to me by Dr. Jean-Baptiste, pending X-Ray and labs 10PM Patient continues to complain of "chest tightness" although states pain is gone. States she feels as though she may have another acute flareup of asthma at home. Patient requesting another duoneb. Will give duoneb and magnesium. Case discussed with Dr. Antonio who agrees to OBS admission. Patient speaking full sentences at this time, not hypoxic, stable for floor. Disposition - Clinical Impression Clinical Impression: Asthma - POA Present On Arrival: None - Disposition Disposition: Hospitalized as Observation Patient Disposition Time: 22:00 Condition: FAIR
[2017-12-11 19:25] LABS: BASO % 0.3 % (0.0-2.0); HEMOGLOBIN 12.4 g/dL (12.0-16.0); LYMPH # 0.8 K/uL (1.0-4.3); LYMPH % 7.6 % (20.0-40.0); MEAN CELL VOLUME 88.6 fl (81.0-99.0); MEAN CORPUSCULAR HEMOGLOBIN 29.5 pg (27.0-31.0); MEAN CORPUSCULAR HGB CONC 33.3 g/dL (33.0-37.0); MEAN PLATELET VOLUME 9.5 fl (7.2-11.7); MONO # 0.8 K/uL (0.0-0.8); MONO % 6.8 % (0.0-10.0); NEUT # 9.5 K/uL (1.8-7.0); NEUT % 85.3 % (50.0-75.0); PLATELET COUNT 286 K/uL (130-400); RBC 4.21 Mil/uL (3.80-5.20); WHITE BLOOD COUNT 11.2 K/uL (4.8-10.8)
[2017-12-11 19:34] LABS: ALB/GLOB RATIO 1.1 (1.0-2.1); ALBUMIN 4.1 g/dL (3.5-5.0); ALT/SGPT 32 U/L (9-52); AST/SGOT 26 U/L (14-36); BLOOD UREA NITROGEN 17 mg/dl (7-17); CALCIUM 9.1 mg/dL (8.4-10.2); GFR AFRICAN-AMERICAN > 60; GFR NON-AFRICAN AMERICAN > 60
[2017-12-11 19:50] LABS: INR 1.1 (0.9-1.2); PARTIAL THROMBOPLASTIN TIME 31.2 Seconds (25.6-37.1); PROTHROMBIN TIME 12.1 Seconds (9.8-13.1)
--- NOTE | 2017-12-11 21:12 | RAD ---
EXAM: XR Chest, 2 Views CLINICAL HISTORY: 27 years old, female; Signs and symptoms; Other: Cp TECHNIQUE: Frontal and lateral views of the chest. COMPARISON: CR - CHEST TWO VIEWS (PA/LAT) 2016-01-23 20:41 FINDINGS: Lungs: Mild underinflation. No consolidation. Pleural space: No pleural effusion. No pneumothorax. Heart: No cardiomegaly. Mediastinum: Unremarkable. Bones/joints: No acute fracture. IMPRESSION: 1. No definite acute cardiopulmonary disease.
[2017-12-11 21:41] LABS: ANISOCYTOSIS SLIGHT; BANDS 1 % (0-2); HYPOCHROMIC SLIGHT; LYMPHOCYTE 9 % (20-50); MONOCYTE 6 % (0-10); NEUTROPHIL 84 % (42-75); OVALOCYTES SLIGHT; PLATELET ESTIMATE NORMAL (NORMAL); TOTAL CELLS COUNTED 100
[2017-12-11 21:42] LABS: TEARDROP CELLS SLIGHT
[2017-12-11] MEDS ORDERED: Magnesium Sulfate 2 gm/50 ml 2 GM/50 ML BAG IVPB ONE (21:55)
[2017-12-11] MEDS ORDERED: Magnesium Sulfate 2 gm/50 ml 2 GM/50 ML BAG ONE (23:33)
[2017-12-12] MEDS: Albuterol-Ipratrop 3 mg / 0.5 (3 ml) UD INH SCH ×2 (02:00→07:49)
[2017-12-12] MEDS ORDERED: methylPREDNISolone 80 MG in Sodium Chloride 0.9% 50 ML IVPB SCH (04:00)
[2017-12-12 07:44] VITALS: BP 114/73; PULSE 83; RESP 20; TEMP 97.9; O2SAT 97
[2017-12-12] MEDS ORDERED: Pneumococcal 23-Valent Vaccine IM ONE (09:00)
--- NOTE | 2017-12-12 09:46 | CP.PCM.DIS ---
Provider - Provider Date of Admission: 12/11/17 21:54 Attending physician: Daniel Antonio MD Time Spent in preparation of Discharge (in minutes): 30 Diagnosis - Discharge Diagnosis (1) Morbid obesity Status: Acute (2) Asthma Status: Acute (3) Seizure disorder Status: Acute (4) Upper respiratory infection Status: Acute Hospital Course - Lab Results Lab Results: Most Recent Lab Values WBC 11.2 K/uL (4.8-10.8) H 12/11/17 18:48 RBC 4.21 Mil/uL (3.80-5.20) 12/11/17 18:48 Hgb 12.4 g/dL (12.0-16.0) 12/11/17 18:48 Hct 37.3 % (34.0-47.0) 12/11/17 18:48 MCV 88.6 fl (81.0-99.0) 12/11/17 18:48 MCH 29.5 pg (27.0-31.0) 12/11/17 18:48 MCHC 33.3 g/dL (33.0-37.0) 12/11/17 18:48 RDW 14.0 % (11.5-14.5) 12/11/17 18:48 Plt Count 286 K/uL (130-400) 12/11/17 18:48 MPV 9.5 fl (7.2-11.7) 12/11/17 18:48 Neut % (Auto) 85.3 % (50.0-75.0) H 12/11/17 18:48 Lymph % (Auto) 7.6 % (20.0-40.0) L 12/11/17 18:48 Irwin % (Auto) 6.8 % (0.0-10.0) 12/11/17 18:48 Eos % (Auto) 0.0 % (0.0-4.0) 12/11/17 18:48 Baso % (Auto) 0.3 % (0.0-2.0) 12/11/17 18:48 Neut # (Auto) 9.5 K/uL (1.8-7.0) H 12/11/17 18:48 Lymph # (Auto) 0.8 K/uL (1.0-4.3) L 12/11/17 18:48 Irwin # (Auto) 0.8 K/uL (0.0-0.8) 12/11/17 18:48 Eos # (Auto) 0.0 K/uL (0.0-0.7) 12/11/17 18:48 Baso # (Auto) 0.0 K/uL (0.0-0.2) 12/11/17 18:48 Neutrophils % (Manual) 84 % (42-75) H 12/11/17 18:48 Band Neutrophils % 1 % (0-2) 12/11/17 18:48 Lymphocytes % (Manual) 9 % (20-50) L 12/11/17 18:48 Monocytes % (Manual) 6 % (0-10) 12/11/17 18:48 Platelet Estimate Normal (NORMAL) 12/11/17 18:48 Hypochromasia (manual) Slight 12/11/17 18:48 Anisocytosis (manual) Slight 12/11/17 18:48 Tear Drop Cells Slight 12/11/17 18:48 Ovalocytes Slight 12/11/17 18:48 PT 12.1 Seconds (9.8-13.1) 12/11/17 18:43 INR 1.1 (0.9-1.2) 12/11/17 18:43 APTT 31.2 Seconds (25.6-37.1) 12/11/17 18:43 D-Dimer, Quantitative 82 ng/mlDDU (0-230) 12/11/17 18:43 Sodium 141 mmol/l (132-148) 12/11/17 18:48 Potassium 3.8 MMOL/L (3.6-5.0) 12/11/17 18:48 Chloride 99 mmol/L (98-107) 12/11/17 18:48 Carbon Dioxide 27 mmol/L (22-30) 12/11/17 18:48 Anion Gap 19 (10-20) 12/11/17 18:48 BUN 17 mg/dl (7-17) 12/11/17 18:48 Creatinine 0.6 mg/dl (0.7-1.2) L 18 18:48 Est GFR ( Amer) > 60 12/11/17 18:48 Est GFR (Non-Af Amer) > 60 12/11/17 18:48 Random Glucose 94 mg/dL (65-105) 12/11/17 18:48 Calcium 9.1 mg/dL (8.4-10.2) 12/11/17 18:48 Total Bilirubin 0.3 mg/dl (0.2-1.3) 12/11/17 18:48 AST 26 U/L (14-36) 12/11/17 18:48 ALT 32 U/L (9-52) 12/11/17 18:48 Alkaline Phosphatase 84 U/L (38-126) 12/11/17 18:48 Troponin I < 0.0120 ng/mL (0.00-0.120) 12/11/17 18:48 Total Protein 7.9 G/DL (6.3-8.2) 12/11/17 18:48 Albumin 4.1 g/dL (3.5-5.0) 12/11/17 18:48 Globulin 3.8 gm/dL (2.2-3.9) 12/11/17 18:48 Albumin/Globulin Ratio 1.1 (1.0-2.1) 12/11/17 18:48 - Hospital Course Hospital Course: sob resolved Discharge Exam - Head Exam Head Exam: ATRAUMATIC, NORMAL INSPECTION, NORMOCEPHALIC - Eye Exam Eye Exam: EOMI, Normal appearance, PERRL Pupil Exam: NORMAL ACCOMODATION, PERRL - GI/Abdominal Exam GI & Abdominal Exam: Normal Bowel Sounds - Rectal Exam Rectal Exam: NORMAL INSPECTION - Neurological Exam Neurological exam: Alert, CN II-XII Intact, Normal Gait, Oriented x3, Reflexes Normal - Psychiatric Exam Psychiatric exam: Normal Affect, Normal Mood - Skin Skin Exam: Dry, Intact, Normal Color, Warm Discharge Plan - Discharge Medications Prescriptions: Albuterol 0.083% [Albuterol 0.083% Inhal Mounika (2.5 mg/3 ml) UD] 2.5 mg IH QID # 100 neb Methylprednisolone [Medrol Dose Pack (21 tabs)] 4 mg PO ASDIR #21 mg Azithromycin [Zithromax] 250 mg PO DAILY #6 tab - Follow Up Plan Condition: FAIR Disposition: HOME/ ROUTINE Patient education suggested?: Yes Instructions: Azithromycin (Systemic), Asthma, Adult (DC), Methylprednisolone Additional Instructions: follow up with your primary MD 7-10 days. Referrals: Shaik Martin MD [Family Provider] -
--- NOTE | 2017-12-12 12:11 | HP ---
ADMITTING HISTORY AND PHYSICAL HISTORY OF PRESENT ILLNESS: Ms. Araujo is a 27-year-old female who was admitted via the Emergency Room because of progressively worsening shortness of breath, exercise intolerance, cough, and chest tightness for the past several days prior to presentation. The symptoms worsened on the day of admission and she came to the Emergency Room where she was given multiple bronchodilator therapies, which she did not help including magnesium sulfate. She was therefore admitted for acute asthma. PAST MEDICAL HISTORY: She has a past medical history of asthma and seizure disorder. FAMILY HISTORY: Remarkable for mother who has asthma. SOCIAL HISTORY: She does not smoke or drink and she lives at home with . REVIEW OF SYSTEMS: Essentially remarkable for recurrent asthma episode. PHYSICAL EXAMINATION: GENERAL: The patient is alert, oriented, and appears much more comfortable at this point. Denies shortness of breath or exercise intolerance. VITAL SIGNS: Blood pressure of 114/73 with a pulse of 83, and respiratory rate of 20. She is afebrile. O2 saturation of 97% on room air. SKIN: Shows fair turgor. HEENT: Pupils are equal and reactive to light and accommodation. Mouth shows fair hygiene. JVP flat. LUNGS: Clear. HEART: Regular. No murmurs or gallop. BREASTS: Normal. ABDOMEN: Soft and nontender. No organomegaly. EXTREMITIES: Shows no edema or cyanosis. The patient is morbidly obese. NEUROLOGIC: Central nervous system exam is grossly intact. LABORATORY DATA: The rest of the labs and chest x-ray reviewed. IMPRESSION: Acute asthma, which has improved with medication, and history of seizure disorder. PLAN: The plan is to discharge the patient today. She will follow up with Dr. Crowley as an outpatient. She will be on different doses of steroids as well as bronchodilator and antibiotics. The is at bedside who is going to take the patient once discharged. Daniel Antonio MD
--- NOTE | 2017-12-12 14:45 | CARD ---
APPROVED REPORT EKG Measurement Heart [id number] <Conclusion> Normal sinus rhythm Normal ECG
== END 2017-12-12 10:03 | disposition home or self-care (01) ==
LOC: H.ER 17:59 → H.ERHOLD 21:54 → H.MEDSURG1 12-12
PROVIDERS: ADMIT Internal Medicine Pulmonary Disease; ATTEND Internal Medicine Pulmonary Disease
DX: J45.909 Unspecified asthma, uncomplicated (principal); E66.01 Morbid (severe) obesity due to excess calories; Z68.36 Body mass index [BMI] 36.0-36.9, adult; G40.909 Epilepsy, unspecified, not intractable, without status epilepticus; J06.9 Acute upper respiratory infection, unspecified; Z23 Encounter for immunization
CPT/HCPCS: 71046; 80053; 81025; 84484; 85025; 85378; 85610; 85730; 90471; 90732; 93005; 94640; 96365; 96367; 96375; 96376; 99283; G0378; J1885; J2270; J2405; J2930; J7040

== ENCOUNTER 2018-04-11 00:50 | Emergency (ER) | payer OTHER ==
[2018-04-11 00:51] VITALS: BMI 37.8
[2018-04-11 02:01] VITALS: RESP 16; O2SAT 99
--- NOTE | 2018-04-11 02:35 | ED PDOC ---
Lower Extremity Pain/Injury Time Seen by Provider: 04/11/18 01:41 Chief Complaint (Nursing): Lower Extremity Problem/Injury Chief Complaint (Provider): left foot pain History Per: Patient History/Exam Limitations: no limitations Onset/Duration Of Symptoms: Hrs Current Symptoms Are (Timing): Still Present Additional Complaint(s): 28 y/o female presents for evaluation of left foot pain from injury sustained prior to arrival. Patient states she has history of trauma to left foot from injury years ago and has screws and "string" in foot from bone/ligament repair. Patient states since surgery she experiences intermittent numbness to left leg if sitting for too long and while sitting in bed tonight leg went numb and when she stood up her left foot got caught, causing her to put all her weight on the top of the left foot which bent downwards. Patient reports worsening pain to foot since then. Denies numbness/weakness left lower extremity, limitation of movement. Past Medical History Reviewed: Historical Data, Nursing Documentation, Vital Signs Vital Signs: Last Vital Signs Temp 98.2 F 04/11/18 01:59 Pulse 69 04/11/18 01:59 Resp 16 04/11/18 01:59 BP 112/78 04/11/18 01:59 Pulse Ox 99 04/11/18 01:59 - Medical History PMH: Asthma (WITH BRONCHITIS), Bronchitis, Depression, Fractures (LEFT FOOT), Seizures Denies: HIV, Chronic Kidney Disease - Family History Family History: States: Unknown Family Hx - Immunization History Hx Tetanus Toxoid Vaccination: No Hx Influenza Vaccination: No Hx Pneumococcal Vaccination: No - Home Medications Home Medications: Ambulatory Orders Medication Instructions Recorded Carbamazepine [Carbatrol] 200 mg PO DAILY 02/04/15 Carbamazepine [Carbatrol] 400 mg PO HS 02/04/15 Pregabalin [Lyrica] 100 mg PO TID 08/21/16 Folic Acid 2 mg PO BID 01/11/17 lamoTRIgine [Lamictal] 1 tab PO BID 01/11/17 Albuterol 0.083% [Albuterol 0.083% 2.5 mg IH QID #100 neb 12/12/17 Inhal Mounika (2.5 mg/3 ml) UD] Azithromycin [Zithromax] 250 mg PO DAILY #6 tab 12/12/17 Escitalopram [Lexapro] 1 tab PO HS 12/12/17 Methylprednisolone [Medrol Dose 4 mg PO ASDIR #21 mg 12/12/17 Pack (21 tabs)] Naproxen [Naprosyn] 500 mg PO Q12 PRN #20 tablet 04/11/18 - Allergies Allergies/Adverse Reactions: Allergies Allergy/AdvReac Type Severity Reaction Status Date / Time doxycycline Allergy ANAPHYLAXIS Verified 04/11/18 01:58 Review of Systems ROS Statement: Except As Marked, All Systems Reviewed And Found Negative Musculoskeletal: Positive for: Foot Pain (left) Physical Exam - Reviewed Nursing Documentation Reviewed: Yes Vital Signs Reviewed: Yes - Physical Exam Appears: Positive for: Well, Non-toxic, No Acute Distress Pulses-Dorsalis Pedis (L): 2+ Pulses-Dorsalis Pedis (R): 2+ Pulses-Post. Tibialis (L): 2+ Pulses-Post. Tibialis (R): 2+ Extremity: Positive for: Swelling (swelling noted dorsal left foot distal 1-3 metatarsals with + tenderness. Surgical scar noted proximal to area of swelling. Tender to palpate left medial and lateral malleolus without swelling/ deformity. Distal NV/ motor intact (decreased ROM, but baseline according to patient)) Neurologic/Psych: Positive for: Alert, Oriented. Negative for: Motor/Sensory Deficits - ECG O2 Sat by Pulse Oximetry: 99 - Other Rad xray left ankle X-Ray: Viewed By Me X-Ray Interpretation: no acute findings xray left foot X-Ray: Viewed By Me X-Ray Interpretation: no acute findings - Progress ED Course And Treament: xrays, Toradol IM Patient educated on findings; KARINE wrap, air cast applied. Patient refusing crutches, has cane with her she will use Advised RICE. Rx Naproxen given Follow up Podiatry within 2-3 days. Return precautions given Disposition - Clinical Impression Clinical Impression: Foot sprain, Ankle sprain - Patient ED Disposition Is Patient to be Admitted: No Counseled Patient/Family Regarding: Studies Performed, Diagnosis, Need For Followup, Rx Given - Disposition Referrals: Shaik Martin MD [Primary Care Provider] - Disposition: Routine/Home Disposition Time: 05:01 Condition: IMPROVED Prescriptions: Naproxen [Naprosyn] 500 mg PO Q12 PRN #20 tablet PRN Reason: Pain, Moderate (4-7) Instructions: Ankle Sprain, Foot Sprain (DC) Forms: [employer] (Yemeni)
[2018-04-11 05:04] VITALS: BP 117/63; PULSE 87; TEMP 98.7
--- NOTE | 2018-04-11 11:14 | RAD ---
Date of service: 04/11/2018 PROCEDURE: Left Foot Radiographs. HISTORY: injury, pain distal metatarsals COMPARISON: Left foot radiographs dated 03/03/2018. FINDINGS: BONES: Stable position orthopedic artery No acute fracture. JOINTS: Normal. SOFT TISSUES: Normal. OTHER FINDINGS: None. IMPRESSION: Prior left foot surgery. No demonstrated acute fracture or dislocation.
--- NOTE | 2018-04-11 11:14 | RAD ---
Date of service: 04/11/2018 PROCEDURE: Left Ankle Radiographs. HISTORY: injury COMPARISON: None FINDINGS: BONES: Stable position orthopedic hardware. No acute fracture. JOINTS: Ankle mortise maintained. Talar dome intact SOFT TISSUES: Normal. OTHER FINDINGS: None. IMPRESSION: Prior left foot surgery. No demonstrated acute fracture or dislocation.
== END 2018-04-11 05:00 | disposition home or self-care (01) ==
LOC: H.ER 00:50
DX: S93.402A Sprain of unspecified ligament of left ankle, initial encounter (principal); W23.0XXA Caught, crushed, jammed, or pinched between moving objects, initial encounter; Y92.003 Bedroom of unspecified non-institutional (private) residence as the place of occurrence of the external cause; S93.602A Unspecified sprain of left foot, initial encounter
CPT/HCPCS: 29405; 73610; 73630; 81025; 96372; 99285; J1885

== ENCOUNTER 2018-05-12 16:23 | Emergency (ER) | payer OTHER ==
[2018-05-12 16:23] VITALS: BMI 37.8
[2018-05-12 16:34] VITALS: O2SAT 99
[2018-05-12] MEDS ORDERED: Albuterol-Ipratrop 3 mg / 0.5 (3 ml) UD INH STA ×2 (17:07→18:01)
[2018-05-12] MEDS ORDERED: Albuterol 0.083% Inhal Sol (2.5 mg/3 mL) UD INH STA (17:07)
[2018-05-12] MEDS ORDERED: methylPREDNISolone 125 MG in Sodium Chloride 0.9% 50 ML IM STA (17:07)
[2018-05-12] MEDS ORDERED: Albuterol 0.083% Inhal Sol (2.5 mg/3 mL) UD ONE (17:20)
[2018-05-12] MEDS ORDERED: Albuterol-Ipratrop 3 mg / 0.5 (3 ml) UD ONE ×2 (17:21→18:20)
--- NOTE | 2018-05-12 17:21 | ED PDOC ---
HPI: Chest Pain Time Seen by Provider: 05/12/18 16:40 Chief Complaint (Nursing): Anxiety Chief Complaint (Provider): Asthma Exacerbation History Per: Patient, Family (mother) History/Exam Limitations: no limitations Onset/Duration Of Symptoms: Days (x7) Current Symptoms Are (Timing): Still Present Additional Complaint(s): 28 y/o female with a PMHx of asthma presents to the ED for evaluation of asthma exacerbation. Patient states that for the last week, she has been feeling short of breath. 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 Turner, no longer takes her insurance prompting her to see her PMD this past Saturday who advised her to use Albuterol and find another parts classifier. Patient states that prior to arrival she had a panic attack secondary to feeling short of breath. Patient reports she last used albuterol at 5am. Patient is now complaining of chest tightness and dry cough. Otherwise: (-) fever, (-) chills, (-) ear pain, (-) throat pain (-) prolonged immobility, (-) calf tenderness (-) N/V/D (-) abdominal pain (-) travel (-) sick contacts. PMD: Shaik Martin LNMP: 04/30/2018 Past Medical History Reviewed: Historical Data, Nursing Documentation, Vital Signs Vital Signs: Last Vital Signs Temp 98 F 05/12/18 19:53 Pulse 94 H 05/12/18 19:53 Resp 20 05/12/18 19:53 BP 123/75 05/12/18 19:53 Pulse Ox 99 05/16/18 23:18 - Medical History PMH: Asthma (WITH BRONCHITIS), Bronchitis, Depression, Fractures (LEFT FOOT), Seizures - Surgical History Other surgeries: Left foot procedure for fracture - Family History Family History: States: Unknown Family Hx - Social History Current smoker - smoking cessation education provided: No Alcohol: None Drugs: Denies - Home Medications Home Medications: Ambulatory Orders Medication Instructions Recorded Carbamazepine [Carbatrol] 200 mg PO DAILY 02/04/15 Carbamazepine [Carbatrol] 400 mg PO HS 02/04/15 Pregabalin [Lyrica] 100 mg PO TID 08/21/16 Folic Acid 2 mg PO BID 01/11/17 lamoTRIgine [Lamictal] 1 tab PO BID 04/14/17 Albuterol 0.083% [Albuterol 0.083% 2.5 mg IH QID #100 neb 12/12/17 Inhal Mounika (2.5 mg/3 ml) UD] Azithromycin [Zithromax] 250 mg PO DAILY #6 tab 12/12/17 Escitalopram [Lexapro] 1 tab PO HS 12/12/17 Methylprednisolone [Medrol Dose 4 mg PO ASDIR #21 mg 12/12/17 Pack (21 tabs)] Naproxen [Naprosyn] 500 mg PO Q12 PRN #20 tablet 04/11/18 Albuterol Sulfate [Ventolin Hfa] 1 puff INH Q4 PRN #1 unit 05/12/18 predniSONE [predniSONE Tab] 2 tab PO DAILY #8 tab 05/12/18 - Allergies Allergies/Adverse Reactions: Allergies Allergy/AdvReac Type Severity Reaction Status Date / Time doxycycline Allergy ANAPHYLAXIS Verified 04/11/18 01:58 Review of Systems ROS Statement: Except As Marked, All Systems Reviewed And Found Negative Cardiovascular: Positive for: Chest Pain (Tightness) Respiratory: Positive for: Shortness of Breath Physical Exam - Reviewed Nursing Documentation Reviewed: Yes Vital Signs Reviewed: Yes - Physical Exam Comments: GENERAL APPEARANCE: Patient is resting comfortably, speaking in full sentences, awake, alert, oriented x 3, in no acute distress. SKIN: Warm, dry; (-) cyanosis. EYES: (-) conjunctival pallor. ENMT: Mucous membranes moist. Airway patent: (-) stridor. Pharynx: (-) swelling, (-) erythema (-) exudate. TMs: nonbulging and nonerythematous. Nares patent, (-) rhinorrhea. NECK: Supple, FROM (-) tenderness, (-) stiffness, (-) lymphadenopathy. CHEST AND RESPIRATORY: Respirations even and non-labored. (+) faint wheezing to the bilateral upper lungs; (-) rales, (-) rhonchi. Breath sounds equal bilaterally. (-) accessory muscle use (-) retractions. HEART AND CARDIOVASCULAR: (-) irregularity ABDOMEN AND GI: Soft; (-) tenderness (-) guarding (-) distention (-) rebound. EXTREMITIES: (-) deformity, (-) edema. NEURO AND PSYCH: Mental status as above; (-) focal findings (-) facial asymmetry. Gait steady, speech clear. - ECG O2 Sat by Pulse Oximetry: 99 (RA) Pulse Ox Interpretation: Normal Medical Decision Making Medical Decision Making: Time: 1730 Impression: Asthma exacerbation Plan: -- Albuterol 0.083% Inhal Mounika (2.5 mg/3 ml) UD 2.5 mg INH -- Duoneb 3 mg/0.5 mg (3 ml) UD 3 ml INH x2 -- SOLU-Medrol 125 mg IM -- Re-evaluation EKG: NSR @ 77bpm, (-) ST elevations, QTc 409 1950 On re-evaluation, patient reports improvement of symptoms. On exam, patient remains AAOx3, in no acute distress. On exam, neck is supple, lungs CTA, cardiac RRR, abdomen is soft and non-tender, neuro exam shows no focal findings. VSS, stable for discharge. Diagnostic results d/w the patient in great detail. Dx of asthma exacerbation, chest tightness d/w the patient. Based on history, exam and diagnostic results plan will be for discharge and outpatient follow up. Advised to follow up with primary care physician in 1-2 days without fail. Advised to take medication as prescribed. Return to the emergency room at any time for any new or worsening symptoms. Patient states she fully agrees with and understands discharge instructions. States that she agrees with the plan and disposition. Verbalized and repeated discharge instructions and plan. I have given the patient opportunity to ask any additional questions. ____ Scribe Attestation: Documented by George Barrios, acting as a scribe for Melissa Dong PA-C. Provider Scribe Attestation: All medical record entries made by the Scribe were at my direction and personally dictated by me. I have reviewed the chart and agree that the record accurately reflects my personal performance of the history, physical exam, medical decision making, and the department course for this patient. I have also personally directed, reviewed, and agree with the discharge instructions and disposition. Disposition - Clinical Impression Clinical Impression: Asthma exacerbation, Chest tightness - Patient ED Disposition Is Patient to be Admitted: No Counseled Patient/Family Regarding: Studies Performed, Diagnosis, Need For Followup, Rx Given - Disposition Referrals: Shaik Martin MD [Family Provider] - Disposition: Routine/Home Disposition Time: 19:55 Condition: STABLE Additional Instructions: The emergency medical care you received today was directed at your acute symptoms. If you were prescribed any medication, please fill it and take as directed. It may take several days for your symptoms to resolve. Return to the Emergency Department if your symptoms worsen, do not improve, or if you have any other problems. Please contact your doctor in 2 days for re-evaluation and follow up / or call one of the physicians/clinics you have been referred to that are listed on the Patient Visit Information form that is included in your discharge packet. Bring any paperwork you were given at discharge with you along with any medications you are taking to your follow up visit. Our treatment cannot replace ongoing medical care by a primary care provider (PCP) outside of the emergency department. Prescriptions: Albuterol Sulfate [Ventolin Hfa] 1 puff INH Q4 PRN #1 unit PRN Reason: asthma predniSONE [predniSONE Tab] 2 tab PO DAILY #8 tab Instructions: Asthma in Adults, Chest Pain That Is Not Caused by the Heart (DC) , Avoiding Asthma Triggers Forms: [employer] (Croatian) Print Language: LIBYAN - POA Present On Arrival: None
[2018-05-12 19:54] VITALS: BP 123/75; PULSE 94; RESP 20; TEMP 98
== END 2018-05-12 20:14 | disposition home or self-care (01) ==
LOC: H.ER 16:23
DX: J45.901 Unspecified asthma with (acute) exacerbation (principal); F32.9 Major depressive disorder, single episode, unspecified; F41.0 Panic disorder [episodic paroxysmal anxiety]
CPT/HCPCS: 94640; 96372; 99282; J2930

== ENCOUNTER 2018-07-13 01:29 | Emergency (ER) | payer OTHER ==
[2018-07-13 01:29] VITALS: BMI 37.8
[2018-07-13 01:51] VITALS: BP 145/87; PULSE 81; RESP 16; TEMP 98.5; O2SAT 99
[2018-07-13] MEDS: Sodium Chloride 0.9% 1,000 ML IV STA ×2 (02:48→03:18)
--- NOTE | 2018-07-13 02:51 | ED PDOC ---
HPI: Abdomen Time Seen by Provider: 07/13/18 01:49 Chief Complaint (Nursing): Abdominal Pain Chief Complaint (Provider): abdominal pain History Per: Patient History/Exam Limitations: no limitations Onset/Duration Of Symptoms: Days (x3) Current Symptoms Are (Timing): Still Present Pain Scale Rating Of: 4 Location Of Pain/Discomfort: Epigastric, Suprapubic Additional Complaint(s): Genesis Araujo is a 28 year old female, with a past medical history of seizures, who presents to the emergency department for evaluation of an intermittent epigastric and suprapubic abdominal pain onset since Saturday night. She describes pain as a pulling sensation and rates it a 4/10. Patient notes she is x9 weeks , A0, and had care. She had an ultrasound that demonstrated an IUP and state she has been compliant with vitamins. She denies any associated symptoms with pain. She took no medications prior to arrival. No further medical complaints. LMP April 28. PMD: Shaik RAFITA Martin: Dr. Avalos Past Medical History Reviewed: Historical Data, Nursing Documentation, Vital Signs Vital Signs: Last Vital Signs Temp 98.5 F 07/13/18 01:48 Pulse 81 07/13/18 01:48 Resp 16 07/13/18 01:48 BP 145/87 07/13/18 01:48 Pulse Ox 99 07/13/18 01:48 - Medical History PMH: Asthma (WITH BRONCHITIS), Bronchitis, Depression, Fractures (LEFT FOOT), Seizures Denies: HIV, Chronic Kidney Disease - Surgical History Other surgeries: ORF of the foot. Tummy tuck - Family History Family History: States: Unknown Family Hx - Immunization History Hx Tetanus Toxoid Vaccination: No Hx Influenza Vaccination: No Hx Pneumococcal Vaccination: No - Home Medications Home Medications: Ambulatory Orders Medication Instructions Recorded Carbamazepine [Carbatrol] 200 mg PO DAILY 02/04/15 Carbamazepine [Carbatrol] 400 mg PO HS 02/04/15 Pregabalin [Lyrica] 100 mg PO TID 08/21/16 Folic Acid 2 mg PO BID 01/11/17 lamoTRIgine [Lamictal] 1 tab PO BID 01/11/17 Albuterol 0.083% [Albuterol 0.083% 2.5 mg IH QID #100 neb 12/12/17 Inhal Mounika (2.5 mg/3 ml) UD] Azithromycin [Zithromax] 250 mg PO DAILY #6 tab 12/12/17 Escitalopram [Lexapro] 1 tab PO HS 12/12/17 Methylprednisolone [Medrol Dose 4 mg PO ASDIR #21 mg 12/12/17 Pack (21 tabs)] Naproxen [Naprosyn] 500 mg PO Q12 PRN #20 tablet 04/11/18 Albuterol Sulfate [Ventolin Hfa] 1 puff INH Q4 PRN #1 unit 05/12/18 predniSONE [predniSONE Tab] 2 tab PO DAILY #8 tab 05/12/18 Acetaminophen [Acetaminophen 8 650 mg PO Q8 PRN #21 tablet.er 07/13/18 Hour] - Allergies Allergies/Adverse Reactions: Allergies Allergy/AdvReac Type Severity Reaction Status Date / Time doxycycline Allergy ANAPHYLAXIS Verified 07/13/18 01:48 Review of Systems ROS Statement: Except As Marked, All Systems Reviewed And Found Negative Gastrointestinal: Positive for: Abdominal Pain Physical Exam - Reviewed Nursing Documentation Reviewed: Yes Vital Signs Reviewed: Yes - Physical Exam Comments: GENERAL APPEARANCE: Patient is awake, alert, oriented x 3, in no acute distress. Resting comfortably SKIN: Warm, dry; (-) cyanosis. EYES: (-) conjunctival pallor, (-) scleral icterus. ENMT: Mucous membranes moist. NECK: (-) tenderness, (-) stiffness, (-) lymphadenopathy. CHEST AND RESPIRATORY: (-) rales, (-) rhonchi, (-) wheezes; breath sounds equal bilaterally. HEART AND CARDIOVASCULAR: (-) irregularity; (-) murmur, (-) gallop. ABDOMEN AND GI: (-) distention. Bowel sounds active; [+] mild suprapubic tenderness. (-) guarding, (-) rebound, (-) palpable masses, (-) CVA tenderness. EXTREMITIES: (-) deformity, (-) edema, (+) distal pulses. NEURO AND PSYCH: Mental status as above; (-) focal findings. - Laboratory Results Result Diagrams: 07/13/18 02:45 07/13/18 03:55 Urine POC: Positive Urine dip results: Positive for: Ketones (trace), Protein (trace). Negative for: Leukocyte Esterase, Blood, Nitrate, Glucose, Bilirubin - ECG O2 Sat by Pulse Oximetry: 99 (RA) Pulse Ox Interpretation: Normal Medical Decision Making Medical Decision Making: Time: 01:49 Initial Impression: abdominal pain in Initial Plan: --Urine --Urine dipstick --Tylenol 325 mg tab 975 mg PO --Sodium Chloride 1,000 ml IV 999 mls/hr --OB transvaginal [US] --Reevaluation Upreg: Positive 0320 Patient in U/S. 0445 Udip reviewed and unremarkable. 05:00 Ultrasound shows single viable intrauterine . No acute abnormality. As read by [facility]. 0505 Type and Screen: O+ Accucheck: 93 Beta Quant: 158,420.00 U/S demonstrates live IUP corresponding to 10 weeks and 3 days. FHR: 140 as read by Farooq Ferguson M.D. ([facility]) On exam, patient remains AAOx3, in no acute distress. Lungs clear to auscultation, cardiac RRR, abdomen soft, non-tender, repeat neuro exam shows no focal findings. VSS, stable for discharge. Lab/Diagnostic results d/w the patient in great detail. Diagnosis of abdominal pain in d/w the patient. Based on history, exam and diagnostic results, plan will be for outpatient follow up as scheduled with OBGYN on saturday07/18/18. Patient instructed to follow-up with pmd / referral provided / the clinic in 1- 2 days without fail. Advised to take medication as prescribed. Return to the emergency room at any time for any new or worsening symptoms. Patient states she fully agrees with and understands discharge instructions. States that she agrees with the plan and disposition. Verbalized and repeated discharge instructions and plan. I have given the patient opportunity to ask any additional questions. ----- Scribe Attestation: Documented by Fitz Hernandez, acting as a scribe for Melissa Dong PA-C. Provider Scribe Attestation: All medical record entries made by the Scribe were at my direction and personally dictated by me. I have reviewed the chart and agree that the record accurately reflects my personal performance of the history, physical exam, medical decision making, and the department course for this patient. I have also personally directed, reviewed, and agree with the discharge instructions and disposition. Disposition - Clinical Impression Clinical Impression: Abdominal pain during , First trimester - Patient ED Disposition Is Patient to be Admitted: No Counseled Patient/Family Regarding: Studies Performed, Diagnosis, Need For Followup, Rx Given - Disposition Disposition: Routine/Home Disposition Time: 05:05 Condition: STABLE Additional Instructions: FOLLOW UP WITH OBGYN SCHEDULED THIS WEEK. The emergency medical care you received today was directed towards the acute presenting symptoms. If you were prescribed any medication, please fill it and give as directed. It may take several days for your symptoms to resolve. Return to the Emergency Department at any time if symptoms worsen, do not improve, or if any other problems arise. Please contact your doctor in 2 days for re-evaluation and follow up / or call one of the physicians/clinics you have been referred to that are listed on the Patient Visit Information form that is included in your discharge packet. Bring any paperwork you were given at discharge with you along with any medications to your follow up visit. Our treatment cannot replace ongoing medical care by a primary care provider (PCP) outside of the emergency department. Prescriptions: Acetaminophen [Acetaminophen 8 Hour] 650 mg PO Q8 PRN #21 tablet.er PRN Reason: Pain, Moderate (4-7) Instructions: Nutrition Before and During , Acute Abdomen (Belly Pain), Care, - The Third Month, - The Fourth Month, - The Fifth Month Forms: to-BB[facility] (Moroccan) Print Language: ARABIC - POA Present On Arrival: None Results - Lab Results Lab Results: 07/13/18 07/13/18 07/13/18 03:55 03:55 03:10 WBC RBC Hgb Hct MCV MCH MCHC RDW Plt Count MPV Neut % (Auto) Lymph % (Auto) [place] % (Auto) Eos % (Auto) Baso % (Auto) Neut # (Auto) Lymph # (Auto) [place] # (Auto) Eos # (Auto) Baso # (Auto) Sodium 137 Potassium 4.1 Chloride 105 Carbon Dioxide 26 Anion Gap 10 BUN 14 Creatinine 0.4 L Est GFR ( Amer) > 60 Est GFR (Non-Af Amer) > 60 POC Glucose (mg/dL) 93 Random Glucose 86 Calcium 9.3 Total Bilirubin 0.2 AST 33 ALT 40 Alkaline Phosphatase 61 Total Protein 7.8 Albumin 3.9 Globulin 3.9 Albumin/Globulin Ratio 1.0 Beta HCG, Quant 569307.00 Blood Type O POSITIVE Antibody Screen Negative BBK History Checked Patient has bt 07/13/18 02:45 WBC 11.9 H RBC 4.06 Hgb 12.3 Hct 36.4 MCV 89.7 MCH 30.3 MCHC 33.8 RDW 14.2 Plt Count 295 MPV 9.0 Neut % (Auto) 72.0 Lymph % (Auto) 18.4 L [place] % (Auto) 9.0 Eos % (Auto) 0.2 Baso % (Auto) 0.4 Neut # (Auto) 8.5 H Lymph # (Auto) 2.2 [place] # (Auto) 1.1 H Eos # (Auto) 0.0 Baso # (Auto) 0.1 Sodium Potassium Chloride Carbon Dioxide Anion Gap BUN Creatinine Est GFR ( Amer) Est GFR (Non-Af Amer) POC Glucose (mg/dL) Random Glucose Calcium Total Bilirubin AST ALT Alkaline Phosphatase Total Protein Albumin Globulin Albumin/Globulin Ratio Beta HCG, Quant Blood Type Antibody Screen BBK History Checked
[2018-07-13 03:21] LABS: BASO # 0.1 K/uL (0.0-0.2); BASO % 0.4 % (0.0-2.0); EOS % 0.2 % (0.0-4.0); HEMOGLOBIN 12.3 g/dL (12.0-16.0); LYMPH # 2.2 K/uL (1.0-4.3); LYMPH % 18.4 % (20.0-40.0); MEAN CELL VOLUME 89.7 fl (81.0-99.0); MEAN CORPUSCULAR HEMOGLOBIN 30.3 pg (27.0-31.0); MEAN CORPUSCULAR HGB CONC 33.8 g/dL (33.0-37.0); MONO # 1.1 K/uL (0.0-0.8); NEUT # 8.5 K/uL (1.8-7.0); NRBC % 0.1 % (0.0-0.0); RBC 4.06 Mil/uL (3.80-5.20); RED CELL DISTRIBUTION WIDTH 14.2 % (11.5-14.5); WHITE BLOOD COUNT 11.9 K/uL (4.8-10.8)
[2018-07-13 04:28] LABS: ALBUMIN 3.9 g/dL (3.5-5.0); ALT/SGPT 40 U/L (9-52); AST/SGOT 33 U/L (14-36); BLOOD UREA NITROGEN 14 mg/dl (7-17); CALCIUM 9.3 mg/dL (8.4-10.2); GFR NON-AFRICAN AMERICAN > 60
--- NOTE | 2018-07-13 18:48 | US ---
Date of service: 07/13/2018 HISTORY: abdominal pain, 9 wks COMPARISON: None available. TECHNIQUE: Transabdominal and endovaginal ultrasound examination of the pelvis was performed FINDINGS: UTERUS: Measures 10 x 7.6 x 8.5 cm. Normal in size and appearance. No fibroid or other mass lesion seen. ENDOMETRIUM: There is intrauterine gestational sac contains pole. The CRL measures 3.5 centimeter corresponding to gestational age of 10 weeks 3 days. The heart activity is visualized heart rate is 142 BPM. The gestational sac measures 3.5 x 1.2 x 2.6 centimeter. CERVIX: No cervical abnormality identified. RIGHT OVARY: Measures 2.7 x 1.9 x 1.7 cm. No solid mass. Normal flow. LEFT OVARY: The left ovary was not visualized FREE FLUID: No significant free fluid noted. OTHER FINDINGS: None. IMPRESSION: Intrauterine live with ultrasound estimated gestational age of 8 weeks 5 days +/-0 weeks 4 days. Estimated date of delivery by ultrasound is 02/17/2019.
== END 2018-07-13 05:15 | disposition home or self-care (01) ==
LOC: H.ER 01:29
DX: O26.91 Pregnancy related conditions, unspecified, first trimester (principal); R10.2 Pelvic and perineal pain; Z3A.10 10 weeks gestation of pregnancy; Z86.59 Personal history of other mental and behavioral disorders; J45.909 Unspecified asthma, uncomplicated; O99.341 Other mental disorders complicating pregnancy, first trimester; O26.891 Other specified pregnancy related conditions, first trimester; O99.511 Diseases of the respiratory system complicating pregnancy, first trimester

== ENCOUNTER 2019-01-06 11:26 | Emergency (ER) | payer OTHER ==
[2019-01-06 12:08] VITALS: BMI 40.4
[2019-01-06] MEDS ORDERED: Betamethasone Soluspan 30 mg/5mL Inj Susp IM ONE (12:23)
[2019-01-06 13:19] LABS: BASO # 0.1 K/uL (0.0-0.2); BASO % 0.9 % (0.0-2.0); HEMOGLOBIN 10.4 g/dL (12.0-16.0); LYMPH # 1.4 K/uL (1.0-4.3); LYMPH % 14.2 % (20.0-40.0); MEAN CELL VOLUME 85.4 fl (81.0-99.0); MEAN CORPUSCULAR HEMOGLOBIN 28.2 pg (27.0-31.0); MEAN PLATELET VOLUME 9.5 fl (7.2-11.7); MONO % 9.7 % (0.0-10.0); NEUT # 7.6 K/uL (1.8-7.0); NEUT % 75.2 % (50.0-75.0); RBC 3.7 Mil/uL (3.80-5.20); RED CELL DISTRIBUTION WIDTH 14.3 % (11.5-14.5); WHITE BLOOD COUNT 10.1 K/uL (4.8-10.8)
[2019-01-06 13:22] LABS: SQUAMOUS EPITHIAL 16 /hpf (0-5); URINE BACTERIA RARE (<OCC); URINE BILIRUBIN NEGATIVE (NEGATIVE); URINE BLOOD NEGATIVE (NEGATIVE); URINE CLARITY CLOUDY (Clear); URINE COLOR YELLOW (YELLOW); URINE GLUCOSE (UA) NEG (NEGATIVE); URINE LEUKOCYTE ESTERASE NEG Leu/uL (Negative); URINE PROTEIN 30 mg/dL (NEGATIVE); URINE UROBILINOGEN 0.2-1.0 mg/dL (0.2-1.0)
[2019-01-06 13:37] LABS: ALBUMIN 3.3 g/dL (3.5-5.0); ALT/SGPT 19 U/L (9-52); AST/SGOT 21 U/L (14-36); BILIRUBIN,DIRECT 0.3 mg/ml (0.0-0.4); BLOOD UREA NITROGEN 10 mg/dl (7-17); CALCIUM 8.6 mg/dL (8.4-10.2); GFR NON-AFRICAN AMERICAN > 60; URIC ACID 3.9 mg/Dl (2.2-7.5)
[2019-01-06 19:26] VITALS: BP 129/77; PULSE 87; TEMP 98.7; O2SAT 95
--- NOTE | 2019-01-07 07:43 | OBHP ---
Datetime: 01/06/2019 12:03 IP Adm Impression: , intrauterine IP Chief Complaint Other: Brought from [facility] for elevated BP after sono IP Admit Plan: Observation/Evaluation Admit Comment, IP Provider: 28 yo f 35.1 with PMH of partial Seizure on medication, was sent to [facility] by US due to high blood pressure. Otherwise patient is asymptomatic. Patient report that she [place] ve a scheduled C-sec due to unable to delivery via vaginal delivery due to seizure. Patient report is seizure free for past 2 mo. Patien also report having pedal edema for past 1-2 weeks. Patient denies any current, headache, seizure, chest pain, sob, abd pain, diarrhea, constipation, dysuria or polyur ia. ROS NEG except mentioned in HPI * off note, evaluating patient hx patient appear to have chronic HTN. PCP Dr Avalos Allergy : doxy Rash, jaw lock MEdication lamictal, lyrica, folic acid PMH seizure PSH: tummy tock, endometriosis ablation OBGYN none PFH None Social denies smokingh drinking or drugs use. 12:16 assessment and plan 28 year old female 35.1 wk sent to [facility] DUE to HTN. Patient will be worked up for preeclampsi a Patient vitals are in the 140s. Pt is asymptomatic will order blood labs to evaluate for preeclampsia check blood pressure q15m will follow up with lap and proceed Betamethasone 24 urine collection follow up for tomorrow sec betamethasone shot will give labetalol 200mg BID Dr Stewart PGy1 Case discussed with Dr Reynaga FAX NUMBER [phone] OB Hospitalist: Pt seen and examined with PGY1. Agree with note. After calling PMD's office, Dr Avalos (PMD)called me. He had Dr Keita call me - ordered labs, steroids, and 24h urine collection . Since she had no [place]/visual dist or other symptoms of pre-eclampsia, will discharge her home. Faxe d labs to his office. She understood signs/symptoms of pre-eclampsia. She wiull come back tmrw for se cond dose of steroids MAHNDO Pelvic Type - PN: Not Done Extremities - PN: Normal Abdomen - PN: Normal Back - PN: Normal Breast - PN: Not Done Lungs - PN: Normal Heart - PN: Normal Thyroid - PN: Normal Neurologic - PN: Normal HEENT - PN: Normal General - PN: Normal FHR - Baseline A Provider: 130 Comments, ACOG Physical Exam: no acute distress heart s1 s2 heard no extra heart sound lung clear abd BS+ nontender, there is surgical scaring noted on abdomen and umbilicus extremeties b/l lower extremeties edema. Gestation - Est Wks by US: 35.1 EGA AdmitDate IP: 35.1 Vital Signs Provider: Reviewed Vital Signs Provider Details: HTN IP Chief Complaint: Other NICHD Variability Prov Fetus A: Moderate 6-25bpm NICHD Accel Fetus A IP Provider: [id number] FHR Category Provider Fetus A: Category I Genitourinary Exam: Normal DTRs - PN: Not Done
--- NOTE | 2019-01-07 07:45 | OBDCSUM ---
Datetime: 01/06/2019 14:24 Discharge Comment, Provider: Started Labetolol 200mg po BID; rec'd steroid dose first today/second tmrw; 24 hr urine collection to be brought in tomorrow Discharge Diagnosis Prov Other: Elevated BP
== END 2019-01-06 15:24 | disposition home or self-care (01) ==
LOC: H.EROB2 11:26
DX: O13.3 Gestational [pregnancy-induced] hypertension without significant proteinuria, third trimester (principal); Z87.59 Personal history of other complications of pregnancy, childbirth and the puerperium; Z3A.35 35 weeks gestation of pregnancy
CPT/HCPCS: 80053; 81003; 82248; 84550; 85025; 96372; 99283; J0702

== ENCOUNTER 2019-01-07 12:13 | Emergency (ER) | payer OTHER ==
[2019-01-06 12:08] VITALS: BMI 40.4
[2019-01-07] MEDS ORDERED: Betamethasone Soluspan 30 mg/5mL Inj Susp IM ONE (14:00)
[2019-01-07 18:49] VITALS: BP 127/72; PULSE 78; RESP 18; TEMP 98.7; O2SAT 100
== END 2019-01-07 14:10 | disposition home or self-care (01) ==
LOC: H.EROB2 12:13
DX: O13.3 Gestational [pregnancy-induced] hypertension without significant proteinuria, third trimester (principal); Z3A.35 35 weeks gestation of pregnancy; Z23 Encounter for immunization
CPT/HCPCS: 96372; 99281; J0702